=== PATIENT | male | born 1985 | race Caucasian/White ===

== ENCOUNTER 2020-10-07 09:10 | Emergency (ER) | payer MEDICAID, SELFPAY ==
--- NOTE | 2020-10-07 09:23 | ED.NAVMDI ---
HPI - Nausea/Vomiting/Diarrhea General Chief complaint: Nausea/Vomiting/Diarrhea Stated complaint: n/v Time Seen by Provider: 10/07/20 09:18 Source: patient and EMS Mode of arrival: EMS Limitations: no limitations History of Present Illness HPI Narrative: 35 y/o male with history of DM1 on insulin pump, hx gastroparesis presents to the ED with acute onset of nausea and vomiting that started at 11pm last night. He denies abdominal pain, fever, chills, hematemesis, urinary symptoms, SOB or chest pain. He reports some mild loose stools. No sick contacts, no new foods or concern for food bourne illness. He states he used to have gastroparesis flares very frequently but has not had once in almost a year. 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 MD elicited complaint: nausea and vomiting Onset (ago): hour(s) (10) Description of vomiting: food contents, watery and bilious Description of diarrhea: semi-solid Associated nausea: Yes Associated abdominal pain: No Location of pain: none Exacerbating factors: eating Relieving factors: vomiting Associated symptoms: loss of appetite, nausea/vomiting and weakness Treatment prior to arrival: other (IV zofran ) Related Data Previous Rx's Medication Instructions Recorded metoclopramide HCl [Reglan] 10 mg PO Q6H PRN #15 tab 10/07/20 Allergies Allergy/AdvReac Type Severity Reaction Status Date / Time No Known Allergies Allergy Mild NKA Verified 10/07/20 09:24 Review of Systems Review of Systems: Constitutional: No Fever, No Chills Cardiovascular: No Chest Pain, No SOB Respiratory: No Cough, No Sputum, No Wheezing Gastrointestinal: + Nausea, + Vomiting, + Diarrhea, No abdominal Pain, No Hematochezia, No Melena Genitourinary: No Dysuria, No Urinary Frequency, No Hematuria Musculoskeletal: No joint pain, No Myalgias Skin: No Skin Lesions, No rash Neuro: + Weakness, No Numbness, No Dizziness, No Headache Psych: No Anxiety/Panic, No Depression Heme/Lymph: No Bruising, No Lymphadenopathy Endocrine: No Polyuria, No Polydipsia Gastrointestinal: Gastrointestinal: Reports nausea PMFSH Past Medical History Attestation statement: The following information was validated with the patient. Medical History Type 1 diabetes Social History Social History Alcohol intake: current Alcohol intake frequency: holidays/special occasions only Smoking Status: Current every day smoker Use of substances other than those prescribed or required for medical reasons: Yes Substance Use Type: Marijuana Advance Directives: No Advance Directives Information Provided: No Physical Exam Vital Signs: Vital Signs: Last Vital Signs Temp 98.8 F 10/07/20 12:37 Pulse 77 10/07/20 12:37 Resp 16 10/07/20 09:25 BP 144/78 H 10/07/20 12:37 Pulse Ox 98 10/07/20 12:37 Body Mass Index 28.1 Appearance: Alert. Oriented X3. No acute distress. Eyes: Pupils equal, round and reactive to light. ENT: Pharynx normal. Neck: Normal inspection. Neck supple. CVS: Normal heart rate and rhythm. Pulses normal. Respiratory: No respiratory distress. Breath sounds normal. Abdomen: Soft and nontender. +BS x4 Skin: Skin warm and dry. Normal skin color. Normal skin turgor. No rashes. Extremities: No lower extremity edema. Neuro: Oriented X 3. No motor deficit. No sensory deficit. Course Course Course Narrative: 35 y/o with hx DM1, hx gastroparesis presenting with acute onset of N/V, no abdominal pain. Suspect gastroparesis vs gastroenteritis. Given lack of pain or tenderness on exam will hold off on imaging for now. Will hydrate give dose of Reglan now for persistent nausea, check labs for electrolyte abnormalities. Reevaluation(s) Reevaluation #1: WBC 16.6K, has been elevated on all visits to the ER. Likely reactive. No other significant abnormalities. Patient given reglan, benadryl and ativan with good effect. He is tolerating PO and like to be discharged home. Stable for d/c. MDM - Nausea/Vomiting/Diarrhea Lab Data Result diagrams: 10/07/20 09:51 10/07/20 09:51 Labs: Lab Results 10/07/20 10/07/20 10/07/20 Range/Units 09:51 09:51 09:51 WBC 16.6 H (4.8-10.8) X10*3/uL RBC 4.61 (4.60-5.80) X10*6/uL Hgb 15.4 (14.0-18.0) g/dl Hct 44.5 (42-52) % MCV 96.5 (80-98) fL MCH 33.4 H (27.0-33.0) pg MCHC 34.6 (31.0-36.0) g/dl RDW 12.6 (11.0-16.0) % Plt Count 378 (160-400) X10*3/uL MPV 9.7 (9.4-12.4) fL Immature Gran % (Auto) 0.3 (0.0-0.4) % Neut % (Auto) 91.1 H (45-73) % Lymph % (Auto) 3.2 L (20-40) % [place] % (Auto) 5.1 (2-11) % Eos % (Auto) 0.2 (0-4) % Baso % (Auto) 0.1 (0-2) % Lymph # (Auto) 0.5 L (1.2-4.9) X10*3/uL [place] # (Auto) 0.9 (0.1-1.2) X10*3/uL Eos # (Auto) 0.0 (0.0-0.4) X10*3/uL Baso # (Auto) 0.0 (0.0-0.2) X10*3/uL Abs Immat Gran (auto) 0.05 H (0.00-0.03) X10*3/uL Absolute Neuts (auto) 15.1 H (2.0-8.3) X10*3/uL Absolute Nucleated RBC 0.000 (0.0-0.012) X10*3/uL Nucleated RBC % (auto) 0.0 (0.0-0.2) /100WBC Smear Tech's Comments VERIFIED Sodium 140 (135-145) mmol/L Potassium 5.1 (3.3-5.1) mmol/l Chloride 100 (96-108) mmol/L Carbon Dioxide 25 (22-29) mmol/L Anion Gap 20 (12-20) BUN 11 (9-16) mg/dL Creatinine 1.21 (0.5-1.4) mg/dL Estim Creat Clear Calc 87.9 Estimated GFR > 60 Random Glucose 179 H (60-115) mg/dL Calcium 9.9 (8.4-10.2) mg/dL Magnesium 1.6 (1.6-2.6) mg/dL Total Bilirubin 0.8 (0.0-1.0) mg/dL Direct Bilirubin 0.4 (0.0-0.5) mg/dL AST 21 (5-37) U/L ALT 11 (0-40) U/L Alkaline Phosphatase 69 (39-117) U/L Total Protein 8.0 (6.5-8.0) g/dL Albumin 4.9 (3.5-5.0) g/dL Lipase 4 L (8-78) U/L Ethyl Alcohol < 10 mg/dL Discharge Plan Discharge Clinical Impression: Gastroenteritis Patient Disposition: Home, Self-Care Instructions: Diabetic Gastroparesis (DC), Gastroenteritis (ED) Additional Instructions: Your lab work today showed an elevation in your white blood cells which you have had several times in the past. This can be due to stress reaction from vomiting or an infection. You likely either have a gastroenteritis or GI bug and/or a flare of gastroparesis Recommend tight glucose control Take the prescribed medication as needed for nausea and vomiting. Follow up with your doctor this week. If you develop persistent vomiting or abdominal pain come back to the ER for further evaluation. Prescriptions: New metoclopramide HCl [Reglan] 10 mg tablet 10 mg PO Q6H PRN (Reason: nausea and vomiting) Qty: 15 RF: 0 Stand Alone Forms: Work/School Release
[2020-10-07 09:25] VITALS: BP 137/77; PULSE 108; PULSE 84; RESP 16; TEMP 37.1; O2SAT 99; BMI 28.1
[2020-10-07 09:57] LABS: Basophils Percent Auto 0.1 % (0-2); Eosinophils Percent Auto 0.2 % (0-4); Hematocrit 44.5 % (42-52); Hemoglobin 15.4 g/dl (14.0-18.0); Imm Gran Abs Auto 0.05 X10*3/uL (0.00-0.03); Imm Gran Pct Auto 0.3 % (0.0-0.4); Lymphocytes Absolute Auto 0.5 X10*3/uL (1.2-4.9); Lymphocytes Percent Auto 3.2 % (20-40); MANUAL DIFF FLAG SCAN; Mean Corpuscular HGB Conc 34.6 g/dl (31.0-36.0); Mean Corpuscular Hemoglobin 33.4 pg (27.0-33.0); Mean Corpuscular Volume 96.5 fL (80-98); Mean Platelet Volume 9.7 fL (9.4-12.4); Monocytes Absolute Auto 0.9 X10*3/uL (0.1-1.2); Monocytes Percent Auto 5.1 % (2-11); Neutrophils Absolute Auto 15.1 X10*3/uL (2.0-8.3); Neutrophils Percent Auto 91.1 % (45-73); Platelet Count 378 X10*3/uL (160-400); Red Blood Count 4.61 X10*6/uL (4.60-5.80); Red Cell Distribution Width 12.6 % (11.0-16.0); SCAN SMEAR FLAG 1; White Blood Count 16.6 X10*3/uL (4.8-10.8)
[2020-10-07] MEDS: Metoclopramide HCl 10 MG/2 ML VIAL IVPUSH (10:00)
[2020-10-07] MEDS: 0.9 % Sodium Chloride 1,000 ML 999 ML IVCONT (10:00)
[2020-10-07 10:22] LABS: Ethanol < 10 mg/dL
[2020-10-07 10:27] LABS: Alanine Aminotransferase 11 U/L (0-40); Albumin Level 4.9 g/dL (3.5-5.0); Alkaline Phosphatase 69 U/L (39-117); Anion Gap 20 (12-20); Aspartate Amino Transferase 21 U/L (5-37); Bilirubin Direct 0.4 mg/dL (0.0-0.5); Bilirubin Total 0.8 mg/dL (0.0-1.0); Blood Urea Nitrogen 11 mg/dL (9-16); Calcium 9.9 mg/dL (8.4-10.2); Carbon Dioxide 25 mmol/L (22-29); Chloride 100 mmol/L (96-108); Creatinine Clr Calc Pharmacy 87.9; Estimated Glomerular Filt Rate > 60; Glucose Random 179 mg/dL (60-115); Lipase 4 U/L (8-78); Magnesium 1.6 mg/dL (1.6-2.6); Potassium 5.1 mmol/l (3.3-5.1); Sodium 140 mmol/L (135-145)
--- NOTE | 2020-10-07 10:44 | PC.NURSE ---
blood labs obtained and sent, medicated per emar for active vomitting.
[2020-10-07 10:57] LABS: SLIDE REVIEW VERIFIED
[2020-10-07] MEDS: LORazepam 2 MG/ML VIAL 1 MG IVPUSH (11:10)
[2020-10-07] MEDS: diphenhydrAMINE HCL 50 MG/ML VIAL 25 MG IVPUSH (11:10)
--- NOTE | 2020-10-07 11:12 | PC.NURSE ---
pt continues to feel nauseous, medicated further per emar.
--- NOTE | 2020-10-07 12:19 | PC.NURSE ---
resting in stretcher, no nausea/vomitting att.
[2020-10-07 12:37] VITALS: BP 144/78; PULSE 77; TEMP 37.1; O2SAT 98
== END 2020-10-07 14:32 | disposition home or self-care (01) ==
PROVIDERS: Physician Assistant; Emergency Provider Emergency Medicine
DX: K52.29 Other allergic and dietetic gastroenteritis and colitis (principal); E10.9 Type 1 diabetes mellitus without complications; Z79.4 Long term (current) use of insulin; Z96.41 Presence of insulin pump (external) (internal); F17.200 Nicotine dependence, unspecified, uncomplicated
CPT/HCPCS: 36415; 80048; 80076; 80320; 83690; 83735; 85025; 96361; 96374; 96375; 99284; J1200; J2060; J2765

== ENCOUNTER 2020-11-05 23:52 | Emergency (ER) | payer MEDICAID, SELFPAY ==
[2020-11-06 00:39] VITALS: BP 157/102; PULSE 107; RESP 18; TEMP 36.5; O2SAT 98; BMI 25.8
--- NOTE | 2020-11-06 00:42 | ED_ITS ---
HPI - Psych General Chief Complaint: Psychiatric Symptoms <JAJA Maurer Last Filed: 11/06/20 01:28> Stated Complaint: section 12 <JAJA Maurer Last Filed: 11/06/20 01:28> Time Seen by Provider: 11/06/20 00:40 <JAJA Maurer Last Filed: 11/06/20 01:28> Source: patient and EMS <JAJA Maurer Last Filed: 11/06/20 01:28> Mode of arrival: EMS <JAJA Maurer Last Filed: 11/06/20 01:28> Limitations: no limitations <JAJA Maurer Last Filed: 11/06/20 01:28> History of Present Illness HPI Narrative: 35 y/o male with history of DM 1 on insulin pump, hx DKA in the past, gastroparesis, hx polysubstance abuse, hx bipolar disorder, anxiety/depression, hx inpatient psychiatric admission back in 2012 after Ativan OD in front of his girlfriend who presents to the ED via EMS after he was found lost in the [facility] this evening. He reportedly called 911. He states he went out into the [facility] to enjoy nature. When asked if he got lost he says no and does not respond when asked why he called 911. He refuses to answer all questions and states, I'm sleeping, leave me alone. <JAJA Maurer - Last Filed: 11/06/20 01:28> MD complaint: other (wandering in the [facility] ) <JAJA Maurer Last Filed: 01:28> Onset (ago): hour(s) <JAJA Maurer Last Filed: 11/06/20 01:28> Duration: resolved prior to arrival <JAJA Maurer Last Filed: 11/06/20 01:28> History of same: No <JAJA Maurer Last Filed: 11/06/20 01:28> Relieving factors: none <JAJA Maurer Last Filed: 11/06/20 01:28> Exacerbating factors: none <JAJA Maurer Last Filed: 11/06/20 01:28> Associated psychiatric symptoms: none <JAJA Maurer - Last Filed: 11/06/20 01:28> Treatments prior to arrival: none <JAJA Maurer - Last Filed: 11/06/20 01:28> Related Data Home Medications: Home Medications Medication Instructions Recorded Confirmed insulin lispro [Humalog KwikPen 50 unit SUBCUT DAILY 11/06/20 11/06/20 Insulin] Previous Rx's Medication Instructions Recorded metoclopramide HCl [Reglan] 10 mg PO Q6H PRN #15 tab 10/07/20 <JAJA Maurer - Last Filed: 11/06/20 01:28> Allergies/Adverse Reactions: Allergies Allergy/AdvReac Type Severity Reaction Status Date / Time No Known Allergies Allergy Mild NKA Verified 10/07/20 09:24 <JAJA Maurer - Last Filed: 11/06/20 01:28> Review of Systems Review of Systems: refusing to answer <JAJA Maurer - Last Filed: 11/06/20 01:28> Yes Unobtainable due to mental condition and Unobtainable due to mental status <JAJA Maurer - Last Filed: 11/06/20 01:28> [facility] Past Medical History Attestation statement: The following information was validated with the patient. <JAAJ Maurer - Last Filed: 11/06/20 01:28> Medical History: Medical History Type 1 diabetes <JAJA Maurer - Last Filed: 11/06/20 01:28> Social History Social History: Social History Alcohol intake: current Alcohol intake frequency: a few times a week Alcohol type: beer Smoking Status: Current every day smoker Smoked in Last 30 Days: Yes Use of substances other than those prescribed or required for medical reasons: Yes Substance Use Type: Marijuana Substance Use Frequency: Daily Last Used Substance: Unknown Any prior treatment program specific to substance use: No Advance Directives: No <JAJA Maurer Last Filed: 11/06/20 01:28> Physical Exam Vital Signs: Vital Signs: Last Vital Signs Temp 98.3 F 11/06/20 06:00 Pulse 84 11/06/20 06:00 Resp 18 11/06/20 06:00 BP 145/91 H 11/06/20 06:00 Pulse Ox 99 11/06/20 06:00 Body Mass Index 25.8 Appearance: Sleeping, young man resting in bed Eyes: normal external inspection ENT: normal inspection Neck: Normal inspection. Respiratory: No respiratory distress. Skin: Skin warm and dry. Normal skin color. Extremities: speaking in full sentences initially but refusing to participate. <JAJA Maurer - Last Filed: 11/06/20 01:28> Vital Signs: Last Vital Signs Temp 98.3 F 11/06/20 06:00 Pulse 84 11/06/20 06:00 Resp 18 11/06/20 06:00 BP 145/91 H 11/06/20 06:00 Pulse Ox 99 11/06/20 06:00 Body Mass Index 25.8 <Stefanie Mancini MD - Last Filed: 11/06/20 06:52> Course Course Course Narrative: 35 y/o male with hx DM1 on insulin pump, hx bipolar, polysubstance abuse and prior suicide attempt in 2012 presenting after getting lost wandering in the [facility]. Suspect substance abuse related. Refusing to participate in examination or interview. His VSS on arrival and he is in no distress. Labs and Utox pending. Will need to reassess once more cooperative. Will get BHN consult. <JAJA Maurer - Last Filed: 11/06/20 01:28> Reevaluation(s) Reevaluation #1: Re-evaluated patient and he was found to be diaphoretic and nursing reports that his glucose level was over 300. Patient was given his insulin pump and immediately connected it in administered the necessary coverage for the glucose. Due to the diaphoresis repeat lab work will be drawn. At the time of re-evaluation patient states that he is ?pissed off and frustrated? due to the inability to get the glucose monitoring device that goes along with the insulin pump and he feels that he has been getting the run around. He denies suicidal ideation or homicidal ideation and states that yes he has suffered from depression but he is more pissed off than anything else . We will get case management involvement as well to assist patient and navigating his appointment and potentially prescription renewal. Signed out to Dr Cardenas <Stefanie Mancini MD - Last Filed: 11/06/20 06:52> Time: 06:35 <Stefanie Mancini MD - Last Filed: 11/06/20 06:52> MDM - Psych Lab Data Result diagrams: : 11/06/20 01:48 11/06/20 01:48 <JAJA Maurer - Last Filed: 11/06/20 01:28> Labs: Lab Results 11/06/20 11/06/20 11/06/20 Range/Units 00:38 01:01 01:01 WBC (4.8-10.8) X10*3/uL RBC (4.60-5.80) X10*6/uL Hgb (14.0-18.0) g/dl Hct (42-52) % MCV (80-98) fL MCH (27.0-33.0) pg MCHC (31.0-36.0) g/dl RDW (11.0-16.0) % Plt Count (160-400) X10*3/uL MPV (9.4-12.4) fL Immature Gran % (Auto) (0.0-0.4) % Neut % (Auto) (45-73) % Lymph % (Auto) (20-40) % [place] % (Auto) (2-11) % Eos % (Auto) (0-4) % Baso % (Auto) (0-2) % Lymph # (Auto) (1.2-4.9) X10*3/uL [place] # (Auto) (0.1-1.2) X10*3/uL Eos # (Auto) (0.0-0.4) X10*3/uL Baso # (Auto) (0.0-0.2) X10*3/uL Abs Immat Gran (auto) (0.00-0.03) X10*3/uL Absolute Neuts (auto) (2.0-8.3) X10*3/uL Absolute Nucleated RBC (0.0-0.012) X10*3/uL Nucleated RBC % (auto) (0.0-0.2) /100WBC Sodium (135-145) mmol/L Potassium (3.3-5.1) mmol/L Chloride (96-108) mmol/L Carbon Dioxide (22-29) mmol/L Anion Gap (12-20) BUN (9-16) mg/dL Creatinine (0.5-1.4) mg/dL Estim Creat Clear Calc Estimated GFR POC Glucose 181 H (60-115) mg/dL Random Glucose (60-115) mg/dL Calcium (8.4-10.2) mg/dL Magnesium (1.6-2.6) mg/dL Total Bilirubin (0.0-1.0) mg/dL Direct Bilirubin (0.0-0.5) mg/dL AST (5-37) U/L ALT (0-40) U/L Alkaline Phosphatase (39-117) U/L Total Protein (6.5-8.0) g/dL Albumin (3.5-5.0) g/dL Urine Color YELLOW Urine Appearance CLEAR Urine pH 6.5 (5.0-8.0) Ur Specific [place] <= 1.005 (1.005-1.025) Urine Protein NEG (NEG-TRACE) MG/DL Urine Glucose (UA) 250 H (NEG) MG/DL Urine Ketones NEG (NEG) MG/DL Urine Blood NEG (NEG) Urine Nitrite NEG (NEG) Ur Leukocyte Esterase NEG (NEG) Urine Opiates Screen Not Detected (Not Detect) Ur Barbiturates Screen Not Detected (Not Detect) Ur Phencyclidine Scrn Not Detected (Not Detect) Ur Amphetamines Screen Not Detected (Not Detect) U Benzodiazepines Scrn Not Detected (Not Detect) Urine Cocaine Screen Not Detected (Not Detect) U Marijuana (THC) Screen POSITIVE H (Not Detect) Ethyl Alcohol mg/dL 11/06/20 11/06/20 11/06/20 Range/Units 01:48 01:48 01:48 WBC 6.0 (4.8-10.8) X10*3/uL RBC 4.46 L (4.60-5.80) X10*6/uL Hgb 14.8 (14.0-18.0) g/dl Hct 42.4 (42-52) % MCV 95.1 (80-98) fL MCH 33.2 H (27.0-33.0) pg MCHC 34.9 (31.0-36.0) g/dl RDW 11.9 (11.0-16.0) % Plt Count 325 (160-400) X10*3/uL MPV 10.3 (9.4-12.4) fL Immature Gran % (Auto) 0.2 (0.0-0.4) % Neut % (Auto) 67.0 (45-73) % Lymph % (Auto) 22.4 (20-40) % [place] % (Auto) 8.9 (2-11) % Eos % (Auto) 0.7 (0-4) % Baso % (Auto) 0.8 (0-2) % Lymph # (Auto) 1.3 (1.2-4.9) X10*3/uL [place] # (Auto) 0.5 (0.1-1.2) X10*3/uL Eos # (Auto) 0.0 (0.0-0.4) X10*3/uL Baso # (Auto) 0.1 (0.0-0.2) X10*3/uL Abs Immat Gran (auto) 0.01 (0.00-0.03) X10*3/uL Absolute Neuts (auto) 4.0 (2.0-8.3) X10*3/uL Absolute Nucleated RBC 0.000 (0.0-0.012) X10*3/uL Nucleated RBC % (auto) 0.0 (0.0-0.2) /100WBC Sodium 140 (135-145) mmol/L Potassium 4.8 (3.3-5.1) mmol/L Chloride 106 (96-108) mmol/L Carbon Dioxide 24 (22-29) mmol/L Anion Gap 15 (12-20) BUN 7 L (9-16) mg/dL Creatinine 0.84 (0.5-1.4) mg/dL Estim Creat Clear Calc 115.8 Estimated GFR > 60 POC Glucose (60-115) mg/dL Random Glucose 144 H (60-115) mg/dL Calcium 8.9 D (8.4-10.2) mg/dL Magnesium 2.0 (1.6-2.6) mg/dL Total Bilirubin 0.4 (0.0-1.0) mg/dL Direct Bilirubin 0.2 (0.0-0.5) mg/dL AST 18 (5-37) U/L ALT 9 (0-40) U/L Alkaline Phosphatase 58 (39-117) U/L Total Protein 7.2 (6.5-8.0) g/dL Albumin 4.6 (3.5-5.0) g/dL Urine Color Urine Appearance Urine pH (5.0-8.0) Ur Specific [place] (1.005-1.025) Urine Protein (NEG-TRACE) MG/DL Urine Glucose (UA) (NEG) MG/DL Urine Ketones (NEG) MG/DL Urine Blood (NEG) Urine Nitrite (NEG) Ur Leukocyte Esterase (NEG) Urine Opiates Screen (Not Detect) Ur Barbiturates Screen (Not Detect) Ur Phencyclidine Scrn (Not Detect) Ur Amphetamines Screen (Not Detect) U Benzodiazepines Scrn (Not Detect) Urine Cocaine Screen (Not Detect) U Marijuana (THC) Screen (Not Detect) Ethyl Alcohol 135 mg/dL 11/06/20 Range/Units 06:17 WBC (4.8-10.8) X10*3/uL RBC (4.60-5.80) X10*6/uL Hgb (14.0-18.0) g/dl Hct (42-52) % MCV (80-98) fL MCH (27.0-33.0) pg MCHC (31.0-36.0) g/dl RDW (11.0-16.0) % Plt Count (160-400) X10*3/uL MPV (9.4-12.4) fL Immature Gran % (Auto) (0.0-0.4) % Neut % (Auto) (45-73) % Lymph % (Auto) (20-40) % [place] % (Auto) (2-11) % Eos % (Auto) (0-4) % Baso % (Auto) (0-2) % Lymph # (Auto) (1.2-4.9) X10*3/uL [place] # (Auto) (0.1-1.2) X10*3/uL Eos # (Auto) (0.0-0.4) X10*3/uL Baso # (Auto) (0.0-0.2) X10*3/uL Abs Immat Gran (auto) (0.00-0.03) X10*3/uL Absolute Neuts (auto) (2.0-8.3) X10*3/uL Absolute Nucleated RBC (0.0-0.012) X10*3/uL Nucleated RBC % (auto) (0.0-0.2) /100WBC Sodium (135-145) mmol/L Potassium (3.3-5.1) mmol/L Chloride (96-108) mmol/L Carbon Dioxide (22-29) mmol/L Anion Gap (12-20) BUN (9-16) mg/dL Creatinine (0.5-1.4) mg/dL Estim Creat Clear Calc Estimated GFR POC Glucose 365 H* (60-115) mg/dL Random Glucose (60-115) mg/dL Calcium (8.4-10.2) mg/dL Magnesium (1.6-2.6) mg/dL Total Bilirubin (0.0-1.0) mg/dL Direct Bilirubin (0.0-0.5) mg/dL AST (5-37) U/L ALT (0-40) U/L Alkaline Phosphatase (39-117) U/L Total Protein (6.5-8.0) g/dL Albumin (3.5-5.0) g/dL Urine Color Urine Appearance Urine pH (5.0-8.0) Ur Specific [place] (1.005-1.025) Urine Protein (NEG-TRACE) MG/DL Urine Glucose (UA) (NEG) MG/DL Urine Ketones (NEG) MG/DL Urine Blood (NEG) Urine Nitrite (NEG) Ur Leukocyte Esterase (NEG) Urine Opiates Screen (Not Detect) Ur Barbiturates Screen (Not Detect) Ur Phencyclidine Scrn (Not Detect) Ur Amphetamines Screen (Not Detect) U Benzodiazepines Scrn (Not Detect) Urine Cocaine Screen (Not Detect) U Marijuana (THC) Screen (Not Detect) Ethyl Alcohol mg/dL <JAJA Maurer - Last Filed: 11/06/20 01:28> Lab Results 11/06/20 11/06/20 11/06/20 Range/Units 00:38 01:01 01:01 WBC (4.8-10.8) X10*3/uL RBC (4.60-5.80) X10*6/uL Hgb (14.0-18.0) g/dl Hct (42-52) % MCV (80-98) fL MCH (27.0-33.0) pg MCHC (31.0-36.0) g/dl RDW (11.0-16.0) % Plt Count (160-400) X10*3/uL MPV (9.4-12.4) fL Immature Gran % (Auto) (0.0-0.4) % Neut % (Auto) (45-73) % Lymph % (Auto) (20-40) % [place] % (Auto) (2-11) % Eos % (Auto) (0-4) % Baso % (Auto) (0-2) % Lymph # (Auto) (1.2-4.9) X10*3/uL [place] # (Auto) (0.1-1.2) X10*3/uL Eos # (Auto) (0.0-0.4) X10*3/uL Baso # (Auto) (0.0-0.2) X10*3/uL Abs Immat Gran (auto) (0.00-0.03) X10*3/uL Absolute Neuts (auto) (2.0-8.3) X10*3/uL Absolute Nucleated RBC (0.0-0.012) X10*3/uL Nucleated RBC % (auto) (0.0-0.2) /100WBC Sodium (135-145) mmol/L Potassium (3.3-5.1) mmol/L Chloride (96-108) mmol/L Carbon Dioxide (22-29) mmol/L Anion Gap (12-20) BUN (9-16) mg/dL Creatinine (0.5-1.4) mg/dL Estim Creat Clear Calc Estimated GFR POC Glucose 181 H (60-115) mg/dL Random Glucose (60-115) mg/dL Calcium (8.4-10.2) mg/dL Magnesium (1.6-2.6) mg/dL Total Bilirubin (0.0-1.0) mg/dL Direct Bilirubin (0.0-0.5) mg/dL AST (5-37) U/L ALT (0-40) U/L Alkaline Phosphatase (39-117) U/L Total Protein (6.5-8.0) g/dL Albumin (3.5-5.0) g/dL Urine Color YELLOW Urine Appearance CLEAR Urine pH 6.5 (5.0-8.0) Ur Specific [place] <= 1.005 (1.005-1.025) Urine Protein NEG (NEG-TRACE) MG/DL Urine Glucose (UA) 250 H (NEG) MG/DL Urine Ketones NEG (NEG) MG/DL Urine Blood NEG (NEG) Urine Nitrite NEG (NEG) Ur Leukocyte Esterase NEG (NEG) Urine Opiates Screen Not Detected (Not Detect) Ur Barbiturates Screen Not Detected (Not Detect) Ur Phencyclidine Scrn Not Detected (Not Detect) Ur Amphetamines Screen Not Detected (Not Detect) U Benzodiazepines Scrn Not Detected (Not Detect) Urine Cocaine Screen Not Detected (Not Detect) U Marijuana (THC) Screen POSITIVE H (Not Detect) Ethyl Alcohol mg/dL 11/06/20 11/06/20 11/06/20 Range/Units 01:48 01:48 01:48 WBC 6.0 (4.8-10.8) X10*3/uL RBC 4.46 L (4.60-5.80) X10*6/uL Hgb 14.8 (14.0-18.0) g/dl Hct 42.4 (42-52) % MCV 95.1 (80-98) fL MCH 33.2 H (27.0-33.0) pg MCHC 34.9 (31.0-36.0) g/dl RDW 11.9 (11.0-16.0) % Plt Count 325 (160-400) X10*3/uL MPV 10.3 (9.4-12.4) fL Immature Gran % (Auto) 0.2 (0.0-0.4) % Neut % (Auto) 67.0 (45-73) % Lymph % (Auto) 22.4 (20-40) % [place] % (Auto) 8.9 (2-11) % Eos % (Auto) 0.7 (0-4) % Baso % (Auto) 0.8 (0-2) % Lymph # (Auto) 1.3 (1.2-4.9) X10*3/uL [place] # (Auto) 0.5 (0.1-1.2) X10*3/uL Eos # (Auto) 0.0 (0.0-0.4) X10*3/uL Baso # (Auto) 0.1 (0.0-0.2) X10*3/uL Abs Immat Gran (auto) 0.01 (0.00-0.03) X10*3/uL Absolute Neuts (auto) 4.0 (2.0-8.3) X10*3/uL Absolute Nucleated RBC 0.000 (0.0-0.012) X10*3/uL Nucleated RBC % (auto) 0.0 (0.0-0.2) /100WBC Sodium 140 (135-145) mmol/L Potassium 4.8 (3.3-5.1) mmol/L Chloride 106 (96-108) mmol/L Carbon Dioxide 24 (22-29) mmol/L Anion Gap 15 (12-20) BUN 7 L (9-16) mg/dL Creatinine 0.84 (0.5-1.4) mg/dL Estim Creat Clear Calc 115.8 Estimated GFR > 60 POC Glucose (60-115) mg/dL Random Glucose 144 H (60-115) mg/dL Calcium 8.9 D (8.4-10.2) mg/dL Magnesium 2.0 (1.6-2.6) mg/dL Total Bilirubin 0.4 (0.0-1.0) mg/dL Direct Bilirubin 0.2 (0.0-0.5) mg/dL AST 18 (5-37) U/L ALT 9 (0-40) U/L Alkaline Phosphatase 58 (39-117) U/L Total Protein 7.2 (6.5-8.0) g/dL Albumin 4.6 (3.5-5.0) g/dL Urine Color Urine Appearance Urine pH (5.0-8.0) Ur Specific [place] (1.005-1.025) Urine Protein (NEG-TRACE) MG/DL Urine Glucose (UA) (NEG) MG/DL Urine Ketones (NEG) MG/DL Urine Blood (NEG) Urine Nitrite (NEG) Ur Leukocyte Esterase (NEG) Urine Opiates Screen (Not Detect) Ur Barbiturates Screen (Not Detect) Ur Phencyclidine Scrn (Not Detect) Ur Amphetamines Screen (Not Detect) U Benzodiazepines Scrn (Not Detect) Urine Cocaine Screen (Not Detect) U Marijuana (THC) Screen (Not Detect) Ethyl Alcohol 135 mg/dL 11/06/20 Range/Units 06:17 WBC (4.8-10.8) X10*3/uL RBC (4.60-5.80) X10*6/uL Hgb (14.0-18.0) g/dl Hct (42-52) % MCV (80-98) fL MCH (27.0-33.0) pg MCHC (31.0-36.0) g/dl RDW (11.0-16.0) % Plt Count (160-400) X10*3/uL MPV (9.4-12.4) fL Immature Gran % (Auto) (0.0-0.4) % Neut % (Auto) (45-73) % Lymph % (Auto) (20-40) % [place] % (Auto) (2-11) % Eos % (Auto) (0-4) % Baso % (Auto) (0-2) % Lymph # (Auto) (1.2-4.9) X10*3/uL [place] # (Auto) (0.1-1.2) X10*3/uL Eos # (Auto) (0.0-0.4) X10*3/uL Baso # (Auto) (0.0-0.2) X10*3/uL Abs Immat Gran (auto) (0.00-0.03) X10*3/uL Absolute Neuts (auto) (2.0-8.3) X10*3/uL Absolute Nucleated RBC (0.0-0.012) X10*3/uL Nucleated RBC % (auto) (0.0-0.2) /100WBC Sodium (135-145) mmol/L Potassium (3.3-5.1) mmol/L Chloride (96-108) mmol/L Carbon Dioxide (22-29) mmol/L Anion Gap (12-20) BUN (9-16) mg/dL Creatinine (0.5-1.4) mg/dL Estim Creat Clear Calc Estimated GFR POC Glucose 365 H* (60-115) mg/dL Random Glucose (60-115) mg/dL Calcium (8.4-10.2) mg/dL Magnesium (1.6-2.6) mg/dL Total Bilirubin (0.0-1.0) mg/dL Direct Bilirubin (0.0-0.5) mg/dL AST (5-37) U/L ALT (0-40) U/L Alkaline Phosphatase (39-117) U/L Total Protein (6.5-8.0) g/dL Albumin (3.5-5.0) g/dL Urine Color Urine Appearance Urine pH (5.0-8.0) Ur Specific [place] (1.005-1.025) Urine Protein (NEG-TRACE) MG/DL Urine Glucose (UA) (NEG) MG/DL Urine Ketones (NEG) MG/DL Urine Blood (NEG) Urine Nitrite (NEG) Ur Leukocyte Esterase (NEG) Urine Opiates Screen (Not Detect) Ur Barbiturates Screen (Not Detect) Ur Phencyclidine Scrn (Not Detect) Ur Amphetamines Screen (Not Detect) U Benzodiazepines Scrn (Not Detect) Urine Cocaine Screen (Not Detect) U Marijuana (THC) Screen (Not Detect) Ethyl Alcohol mg/dL <Stefanie Mancini MD - Last Filed: 11/06/20 06:52> Discharge Plan Discharge Prescriptions: No Action metoclopramide HCl [Reglan] 10 mg tablet 10 mg PO Q6H PRN (Reason: nausea and vomiting) Qty: 15 RF: 0 insulin lispro [Humalog KwikPen Insulin] 100 unit/mL Insulin Pen 50 unit SUBCUT DAILY RF: 0 <JAJA Maurer - Last Filed: 11/06/20 01:28>
[2020-11-06 00:46] LABS: Glucose, Whole Blood 181 mg/dL (60-115)
[2020-11-06 01:14] LABS: Glucose Urine UA 250 MG/DL (NEG); Leukocyte Esterase Urine NEG (NEG); Nitrite Urine NEG (NEG); PH 6.5 (5.0-8.0); Specific Gravity - Urine <= 1.005 (1.005-1.025); Urine Blood NEG (NEG); Urine Ketones NEG (NEG); Urine Protein NEG (NEG-TRACE)
[2020-11-06 01:15] LABS: Appearance Urine CLEAR; Color Urine YELLOW; UACC Culture Trigger NO
[2020-11-06 01:30] LABS: Amphetamine Screen Urine Not Detected (Not Detect); Barbiturates, Urine Not Detected (Not Detect); Benzodiazepines Screen Urine Not Detected (Not Detect); Cannabinoid Screen Urine POSITIVE (Not Detect); Cocaine Screen Urine Not Detected (Not Detect); Opiate Screen Urine Not Detected (Not Detect); Phencyclidine Screen Urine Not Detected (Not Detect)
[2020-11-06 02:06] LABS: Basophils Absolute Auto 0.1 X10*3/uL (0.0-0.2); Basophils Percent Auto 0.8 % (0-2); Eosinophils Percent Auto 0.7 % (0-4); Hematocrit 42.4 % (42-52); Hemoglobin 14.8 g/dl (14.0-18.0); Imm Gran Abs Auto 0.01 X10*3/uL (0.00-0.03); Imm Gran Pct Auto 0.2 % (0.0-0.4); Lymphocytes Absolute Auto 1.3 X10*3/uL (1.2-4.9); Lymphocytes Percent Auto 22.4 % (20-40); MANUAL DIFF FLAG NO; Mean Corpuscular HGB Conc 34.9 g/dl (31.0-36.0); Mean Corpuscular Hemoglobin 33.2 pg (27.0-33.0); Mean Corpuscular Volume 95.1 fL (80-98); Mean Platelet Volume 10.3 fL (9.4-12.4); Monocytes Absolute Auto 0.5 X10*3/uL (0.1-1.2); Monocytes Percent Auto 8.9 % (2-11); Platelet Count 325 X10*3/uL (160-400); Red Blood Count 4.46 X10*6/uL (4.60-5.80); Red Cell Distribution Width 11.9 % (11.0-16.0)
[2020-11-06 02:25] LABS: Ethanol 135 mg/dL
[2020-11-06 02:30] LABS: Alanine Aminotransferase 9 U/L (0-40); Albumin Level 4.6 g/dL (3.5-5.0); Alkaline Phosphatase 58 U/L (39-117); Anion Gap 15 (12-20); Aspartate Amino Transferase 18 U/L (5-37); Bilirubin Direct 0.2 mg/dL (0.0-0.5); Bilirubin Total 0.4 mg/dL (0.0-1.0); Blood Urea Nitrogen 7 mg/dL (9-16); Carbon Dioxide 24 mmol/L (22-29); Chloride 106 mmol/L (96-108); Creatinine Clr Calc Pharmacy 115.8; Estimated Glomerular Filt Rate > 60; Glucose Random 144 mg/dL (60-115); Potassium 4.8 mmol/L (3.3-5.1); Sodium 140 mmol/L (135-145); Total Protein 7.2 g/dL (6.5-8.0)
[2020-11-06 02:34] LABS: Calcium 8.9 mg/dL (8.4-10.2)
--- NOTE | 2020-11-06 05:21 | PC.NURSE ---
DINAN faxed and called. PT will be seen during the next shift.
[2020-11-06 06:00] VITALS: BP 145/91; PULSE 84; RESP 18; TEMP 36.8; O2SAT 99
[2020-11-06 06:39] LABS: Glucose, Whole Blood 365 mg/dL (60-115)
--- NOTE | 2020-11-06 06:46 | PC.NURSE ---
When PT came to the unit with PD he was insisting that he needed his insulin pump. PT was upset at the time of arrival and did not clearly express that he had his insulin pump here with him, and the pump was already removed from his body prior to arrival. This nurse assured the PT that we would continue to monitor his insulin throughout the day and we would be able to provide him with insulin according to his sliding scale. When PT woke up this morning and had his POC checked it was found to have increased from 181 mg/dL at 00:38 to 365 mg/dL at 06:17 without receiving any food and drinks. PT was then able to express that he uses his pump in his locker throughout the day to administer insulin. PT was then provided with his insulin pump to help stabilize his blood sugar.
[2020-11-06 07:16] LABS: Acetone, serum QL Negative (Negative)
[2020-11-06 07:17] LABS: Alanine Aminotransferase 10 U/L (0-40); Albumin Level 4.6 g/dL (3.5-5.0); Alkaline Phosphatase 58 U/L (39-117); Anion Gap 16 (12-20); Aspartate Amino Transferase 18 U/L (5-37); Bilirubin Total 0.9 mg/dL (0.0-1.0); Blood Urea Nitrogen 9 mg/dL (9-16); Calcium 8.9 mg/dL (8.4-10.2); Carbon Dioxide 20 mmol/L (22-29); Chloride 100 mmol/L (96-108); Creatinine Clr Calc Pharmacy 98.2; Estimated Glomerular Filt Rate > 60; Glucose Random 414 mg/dL (60-115); Potassium 5.3 mmol/L (3.3-5.1); Sodium 131 mmol/L (135-145); Total Protein 7.4 g/dL (6.5-8.0)
--- NOTE | 2020-11-06 07:59 | PC.NURSE ---
PT IN COMMON AREA WATCHING TV. ATE BKFST. AWAITING BHN
[2020-11-06 08:27] LABS: Glucose, Whole Blood 190 mg/dL (60-115)
[2020-11-06 09:37] VITALS: BP 130/90; PULSE 68; TEMP 36.7; O2SAT 99
--- NOTE | 2020-11-06 10:21 | MHC.CM.PN ---
Addendum entered by Vangie Walters RN 11/06/20 10:29: DISCHARGE HOME W/RESUMPTION OF INSULIN PUMP, PT'S MOTHER TO TRANSPORT, CM WILL CALL PT WITH UPDATED ENDOCRINOLOGY APPT INFO, PT AWARE. NSG AWARE OF PTS DISPOSITION. Original Note: CM MET WITH PT WHO IS ALERT AND ORIENTED, PT DENIES CURRENT SUICIDAL IDEATION AND REPORTS HE FEELS SAFE AT HOME WITH MOM AND STEPFATHER, PT INTERESTED IN THERAPY AND NURSE HAS GIVEN PT INFO AND NUMBER FOR [facility] TO CALL FOR COUNSELING, PT DENIES HAVING PCP AND DECLINES ASSISTANCE FROM CM TO SET PT UP WITH ONE, PT WOULD LIKE ASSISTANCE WITH CALLING TO TRY AND SCHEDULE AN APPT WITH PT'S CHIEF INFORMATICS OFFICER SOONER THAN THE APPT WHICH IS NOW SCHEDULED IN DECEMBER, PT UNSURE OF DATE AND TIME. CM LEFT MESSAGE WITH PT'S CHIEF INFORMATICS OFFICER DR CORCORAN WITH [facility]. PT PHONE NUMBER: [phone] ENDOCINOLOGY: DR CORCORAN [phone]
== END 2020-11-06 10:40 | disposition home or self-care (01) ==
PROVIDERS: Physician Assistant; Emergency Provider Student in an Organized Health Care Education/Training Program
DX: F10.120 Alcohol abuse with intoxication, uncomplicated (principal); Y90.6 Blood alcohol level of 120-199 mg/100 ml; F41.9 Anxiety disorder, unspecified; E10.9 Type 1 diabetes mellitus without complications; F31.9 Bipolar disorder, unspecified; F19.10 Other psychoactive substance abuse, uncomplicated; F17.200 Nicotine dependence, unspecified, uncomplicated; Z79.4 Long term (current) use of insulin; Z96.41 Presence of insulin pump (external) (internal); Z91.5 Personal history of self-harm
CPT/HCPCS: 36415; 80048; 80053; 80076; 80307; 80320; 81003; 82009; 82248; 82947; 83735; 85025; 99285

== ENCOUNTER 2021-02-06 08:51 | Emergency (ER) | payer MEDICAID, SELFPAY ==
[2021-02-06 08:55] VITALS: BP 128/78; PULSE 61; RESP 22; TEMP 36.6; O2SAT 97; BMI 24.1
--- NOTE | 2021-02-06 08:55 | ED_ITS ---
HPI - Nausea/Vomiting/Diarrhea General Chief complaint: Nausea/Vomiting/Diarrhea Stated complaint: n/v Time Seen by Provider: 02/06/21 08:53 Source: patient and EMS Mode of arrival: EMS Limitations: no limitations History of Present Illness MD elicited complaint: nausea, vomiting and diarrhea Pertinent past history: cyclical vomiting Onset (ago): hour(s) (last night) Description of vomiting: food contents Associated nausea: Yes Associated abdominal pain: Yes Location of pain: diffuse Pain consistency: intermittent Severity: similar to previous episodes Quality: cramping Exacerbating factors: eating Relieving factors: none Associated symptoms: loss of appetite, malaise and nausea/vomiting Treatment prior to arrival: other (EMS started fluids and zofran) Related Data Home Medications Medication Instructions Recorded Confirmed insulin lispro [Humalog KwikPen 50 unit SUBCUT DAILY 11/06/20 11/06/20 Insulin] Previous Rx's Medication Instructions Recorded metoclopramide HCl [Reglan] 10 mg PO Q6H PRN #15 tab 10/07/20 ondansetron 4 mg PO Q8H PRN #20 tab 02/06/21 Allergies Allergy/AdvReac Type Severity Reaction Status Date / Time No Known Allergies Allergy Mild NKA Verified 10/07/20 09:24 Review of Systems Review of Systems: Constitutional : No Weight loss, No Fever, No Chills ENT/Mouth : No sore throat, No Rhinorrhea Eyes: No Swelling, No Redness Cardiovascular : No Chest Pain, No SOB, NoEdema Respiratory : No Cough, No Sputum, No Wheezing Gastrointestinal : Positive Nausea, Positive Vomiting, positive Diarrhea, positive abdominal Pain, No Hematochezia, No Melena Genitourinary : No Dysuria, No Urinary Frequency, No Hematuria, No Urgency Musculoskeletal : No joint pain, No Myalgias, No Joint Swelling Skin : No Skin Lesions, No rash Neuro : No Weakness, No Numbness, No Dizziness, No Headache Psych : No Anxiety/Panic, No Depression Heme/Lymph: No Bruising, No Lymphadenopathy Endocrine : No Polyuria, No Polydipsia All other systems reviewed and are negative. Gastrointestinal: Gastrointestinal: Reports nausea PMFSH Past Medical History Attestation statement: The following information was validated with the patient. Medical History Type 1 diabetes Social History Social History (Updated 02/06/21 @ 08:56 by Shana Ambrocio DO) Alcohol intake: current Alcohol intake frequency: a few times a week Alcohol type: beer Smoking Status: Never smoker Substance Use Type: Marijuana Advance Directives: No Advance Directives Information Provided: No Physical Exam Vital Signs: Vital Signs: Last Vital Signs Temp 98 F 02/06/21 08:55 Pulse 61 02/06/21 08:55 Resp 22 H 02/06/21 08:55 BP 128/78 02/06/21 08:55 Pulse Ox 97 02/06/21 08:55 Body Mass Index 24.1 Appearance: Alert. Oriented X3. Active dry heaving mild acute distress. Eyes: Pupils equal, round and reactive to light. ENT: Pharynx dry MM mild Neck: Normal inspection. Neck supple. CVS: Normal heart rate and rhythm. Pulses normal. Respiratory: No respiratory distress. Breath sounds normal. Abdomen: Soft and mild diffuse ttp Skin: Skin warm and dry. pale skin color. Normal skin turgor. Extremities: No lower extremity edema. No calf ttp Neuro: Oriented X 3. No motor deficit. No sensory deficit. Course Course Course Narrative: elevated WBC count due to hyperemesis and not infection or severe sepsis hydrated x 2L NS currently asleep post IM haldol able to tolerate PO feels much better stable for DC at this time, not in DKA repeat IVF and IV anti emetics MDM - Nausea/Vomiting/Diarrhea MDM Narrative Medical decision making narrative: 35 yo male with IDDM here with n/v hx of episodes of cyclical vomiting in the past at this time will obtain basic labs, hydrate IV reglan/benadryl, possible haldol depending on reaction to phenergan, dispo per results and improvement. Lab Data Result diagrams: 02/06/21 09:17 02/06/21 09:17 Labs: Lab Results 02/06/21 02/06/21 02/06/21 Range/Units 09:17 09:17 09:17 WBC 23.5 H (4.8-10.8) X10*3/uL RBC 4.82 (4.60-5.80) X10*6/uL Hgb 16.2 (14.0-18.0) g/dl Hct 46.1 (42-52) % MCV 95.6 (80-98) fL MCH 33.6 H (27.0-33.0) pg MCHC 35.1 (31.0-36.0) g/dl RDW 12.7 (11.0-16.0) % Plt Count 365 (160-400) X10*3/uL MPV 10.4 (9.4-12.4) fL Immature Gran % (Auto) 0.6 H (0.0-0.4) % Neut % (Auto) 87.9 H (45-73) % Lymph % (Auto) 5.1 L (20-40) % [place] % (Auto) 6.1 (2-11) % Eos % (Auto) 0.0 (0-4) % Baso % (Auto) 0.3 (0-2) % Lymph # (Auto) 1.2 (1.2-4.9) X10*3/uL [place] # (Auto) 1.4 H (0.1-1.2) X10*3/uL Eos # (Auto) 0.0 (0.0-0.4) X10*3/uL Baso # (Auto) 0.1 (0.0-0.2) X10*3/uL Abs Immat Gran (auto) 0.15 H (0.00-0.03) X10*3/uL Absolute Neuts (auto) 20.6 H (2.0-8.3) X10*3/uL Absolute Nucleated RBC 0.000 (0.0-0.012) X10*3/uL Nucleated RBC % (auto) 0.0 (0.0-0.2) /100WBC Smear Tech's Comments VERIFIED Hold Blue Top SEE NOTE VBG pH (7.32-7.43) VBG pCO2 mmHg VBG pO2 mmHg VBG HCO3 (22-26) mmol/L VBG O2 Saturation % VBG Base Excess mmol/L Sodium 136 (135-145) mmol/L Potassium 5.4 H (3.3-5.1) mmol/L Chloride 102 (96-108) mmol/L Carbon Dioxide 20 L (22-29) mmol/L Anion Gap 19 (12-20) BUN 13 (9-16) mg/dL Creatinine 1.18 (0.5-1.4) mg/dL Estim Creat Clear Calc 91.0 Estimated GFR > 60 Random Glucose 305 H (60-115) mg/dL Calcium 10.3 H D (8.4-10.2) mg/dL Magnesium 1.6 (1.6-2.6) mg/dL Total Bilirubin 0.9 (0.0-1.0) mg/dL Direct Bilirubin 0.5 (0.0-0.5) mg/dL AST 22 (5-37) U/L ALT 11 (0-40) U/L Alkaline Phosphatase 67 (39-117) U/L Total Protein 7.9 (6.5-8.0) g/dL Albumin 4.8 (3.5-5.0) g/dL Lipase 9 (8-78) U/L Urine Color Urine Appearance Urine pH (5.0-8.0) Ur Specific [place] (1.005-1.025) Urine Protein (NEG-TRACE) MG/DL Urine Glucose (UA) (NEG) MG/DL Urine Ketones (NEG) MG/DL Urine Blood (NEG) Urine Nitrite (NEG) Ur Leukocyte Esterase (NEG) Urine Opiates Screen (Not Detect) Ur Barbiturates Screen (Not Detect) Ur Phencyclidine Scrn (Not Detect) Ur Amphetamines Screen (Not Detect) U Benzodiazepines Scrn (Not Detect) Urine Cocaine Screen (Not Detect) U Marijuana (THC) Screen (Not Detect) Ethyl Alcohol mg/dL Acetone, Qual Negative (Negative) COVID-19 (ABI) (Negative) COVID-19 Clin Com 02/06/21 02/06/21 02/06/21 Range/Units 09:17 09:18 09:23 WBC (4.8-10.8) X10*3/uL RBC (4.60-5.80) X10*6/uL Hgb (14.0-18.0) g/dl Hct (42-52) % MCV (80-98) fL MCH (27.0-33.0) pg MCHC (31.0-36.0) g/dl RDW (11.0-16.0) % Plt Count (160-400) X10*3/uL MPV (9.4-12.4) fL Immature Gran % (Auto) (0.0-0.4) % Neut % (Auto) (45-73) % Lymph % (Auto) (20-40) % [place] % (Auto) (2-11) % Eos % (Auto) (0-4) % Baso % (Auto) (0-2) % Lymph # (Auto) (1.2-4.9) X10*3/uL [place] # (Auto) (0.1-1.2) X10*3/uL Eos # (Auto) (0.0-0.4) X10*3/uL Baso # (Auto) (0.0-0.2) X10*3/uL Abs Immat Gran (auto) (0.00-0.03) X10*3/uL Absolute Neuts (auto) (2.0-8.3) X10*3/uL Absolute Nucleated RBC (0.0-0.012) X10*3/uL Nucleated RBC % (auto) (0.0-0.2) /100WBC Smear Tech's Comments Hold Blue Top VBG pH 7.53 H (7.32-7.43) VBG pCO2 23 mmHg VBG pO2 138 mmHg VBG HCO3 19 L (22-26) mmol/L VBG O2 Saturation 99.0 % VBG Base Excess -0.6 mmol/L Sodium (135-145) mmol/L Potassium (3.3-5.1) mmol/L Chloride (96-108) mmol/L Carbon Dioxide (22-29) mmol/L Anion Gap (12-20) BUN (9-16) mg/dL Creatinine (0.5-1.4) mg/dL Estim Creat Clear Calc Estimated GFR Random Glucose (60-115) mg/dL Calcium (8.4-10.2) mg/dL Magnesium (1.6-2.6) mg/dL Total Bilirubin (0.0-1.0) mg/dL Direct Bilirubin (0.0-0.5) mg/dL AST (5-37) U/L ALT (0-40) U/L Alkaline Phosphatase (39-117) U/L Total Protein (6.5-8.0) g/dL Albumin (3.5-5.0) g/dL Lipase (8-78) U/L Urine Color Urine Appearance Urine pH (5.0-8.0) Ur Specific [place] (1.005-1.025) Urine Protein (NEG-TRACE) MG/DL Urine Glucose (UA) (NEG) MG/DL Urine Ketones (NEG) MG/DL Urine Blood (NEG) Urine Nitrite (NEG) Ur Leukocyte Esterase (NEG) Urine Opiates Screen (Not Detect) Ur Barbiturates Screen (Not Detect) Ur Phencyclidine Scrn (Not Detect) Ur Amphetamines Screen (Not Detect) U Benzodiazepines Scrn (Not Detect) Urine Cocaine Screen (Not Detect) U Marijuana (THC) Screen (Not Detect) Ethyl Alcohol < 10 mg/dL Acetone, Qual (Negative) COVID-19 (ABI) Negative (Negative) COVID-19 Clin Com See Note 02/06/21 02/06/21 Range/Units 12:45 12:45 WBC (4.8-10.8) X10*3/uL RBC (4.60-5.80) X10*6/uL Hgb (14.0-18.0) g/dl Hct (42-52) % MCV (80-98) fL MCH (27.0-33.0) pg MCHC (31.0-36.0) g/dl RDW (11.0-16.0) % Plt Count (160-400) X10*3/uL MPV (9.4-12.4) fL Immature Gran % (Auto) (0.0-0.4) % Neut % (Auto) (45-73) % Lymph % (Auto) (20-40) % [place] % (Auto) (2-11) % Eos % (Auto) (0-4) % Baso % (Auto) (0-2) % Lymph # (Auto) (1.2-4.9) X10*3/uL [place] # (Auto) (0.1-1.2) X10*3/uL Eos # (Auto) (0.0-0.4) X10*3/uL Baso # (Auto) (0.0-0.2) X10*3/uL Abs Immat Gran (auto) (0.00-0.03) X10*3/uL Absolute Neuts (auto) (2.0-8.3) X10*3/uL Absolute Nucleated RBC (0.0-0.012) X10*3/uL Nucleated RBC % (auto) (0.0-0.2) /100WBC Smear Tech's Comments Hold Blue Top VBG pH (7.32-7.43) VBG pCO2 mmHg VBG pO2 mmHg VBG HCO3 (22-26) mmol/L VBG O2 Saturation % VBG Base Excess mmol/L Sodium (135-145) mmol/L Potassium (3.3-5.1) mmol/L Chloride (96-108) mmol/L Carbon Dioxide (22-29) mmol/L Anion Gap (12-20) BUN (9-16) mg/dL Creatinine (0.5-1.4) mg/dL Estim Creat Clear Calc Estimated GFR Random Glucose (60-115) mg/dL Calcium (8.4-10.2) mg/dL Magnesium (1.6-2.6) mg/dL Total Bilirubin (0.0-1.0) mg/dL Direct Bilirubin (0.0-0.5) mg/dL AST (5-37) U/L ALT (0-40) U/L Alkaline Phosphatase (39-117) U/L Total Protein (6.5-8.0) g/dL Albumin (3.5-5.0) g/dL Lipase (8-78) U/L Urine Color YELLOW Urine Appearance CLEAR Urine pH 8.0 (5.0-8.0) Ur Specific [place] 1.010 (1.005-1.025) Urine Protein NEG (NEG-TRACE) MG/DL Urine Glucose (UA) 500 H (NEG) MG/DL Urine Ketones 15 (NEG) MG/DL Urine Blood NEG (NEG) Urine Nitrite NEG (NEG) Ur Leukocyte Esterase NEG (NEG) Urine Opiates Screen Not Detected (Not Detect) Ur Barbiturates Screen Not Detected (Not Detect) Ur Phencyclidine Scrn Not Detected (Not Detect) Ur Amphetamines Screen Not Detected (Not Detect) U Benzodiazepines Scrn Not Detected (Not Detect) Urine Cocaine Screen POSITIVE H (Not Detect) U Marijuana (THC) Screen POSITIVE H (Not Detect) Ethyl Alcohol mg/dL Acetone, Qual (Negative) COVID-19 (ABI) (Negative) COVID-19 Clin Com Critical Care Time Critical Care Time Critical Care Time: Yes Total Critical Care Time: 30 Attestation: repeat IVF, anti emetics I attest to this time spent taking care of the patient Discharge Plan Discharge Clinical Impression: Dehydration Vomiting Qualifiers: Vomiting type: unspecified Vomiting Intractability: non-intractable Nausea presence: with nausea Qualified Code(s): R11.2 - Nausea with vomiting, unspecified Patient Disposition: Home, Self-Care Instructions: Acute Nausea and Vomiting (ED) Additional Instructions: return to ED for any worsening symptoms or concerns Prescriptions: New ondansetron 4 mg tablet,disintegrating 4 mg PO Q8H PRN (Reason: nausea and vomiting) Qty: 20 RF: 0 No Action metoclopramide HCl [Reglan] 10 mg tablet 10 mg PO Q6H PRN (Reason: nausea and vomiting) Qty: 15 RF: 0 insulin lispro [Humalog KwikPen Insulin] 100 unit/mL Insulin Pen 50 unit SUBCUT DAILY RF: 0 Referrals: Physician,Unknown [Primary Care Provider] - 2 days Stand Alone Forms: Work/School Release Interventions: ED Discharge Assessment Last Done: 02/06/21 14:56 Discharge Date/Time: 02/06/21 14:56
[2021-02-06 09:25] LABS: Basophils Absolute Auto 0.1 X10*3/uL (0.0-0.2); Basophils Percent Auto 0.3 % (0-2); Hematocrit 46.1 % (42-52); Hemoglobin 16.2 g/dl (14.0-18.0); Imm Gran Abs Auto 0.15 X10*3/uL (0.00-0.03); Imm Gran Pct Auto 0.6 % (0.0-0.4); Lymphocytes Absolute Auto 1.2 X10*3/uL (1.2-4.9); Lymphocytes Percent Auto 5.1 % (20-40); MANUAL DIFF FLAG SCAN; Mean Corpuscular HGB Conc 35.1 g/dl (31.0-36.0); Mean Corpuscular Hemoglobin 33.6 pg (27.0-33.0); Mean Corpuscular Volume 95.6 fL (80-98); Mean Platelet Volume 10.4 fL (9.4-12.4); Monocytes Absolute Auto 1.4 X10*3/uL (0.1-1.2); Monocytes Percent Auto 6.1 % (2-11); Neutrophils Absolute Auto 20.6 X10*3/uL (2.0-8.3); Neutrophils Percent Auto 87.9 % (45-73); Platelet Count 365 X10*3/uL (160-400); Red Blood Count 4.82 X10*6/uL (4.60-5.80); Red Cell Distribution Width 12.7 % (11.0-16.0); SCAN SMEAR FLAG 1; White Blood Count 23.5 X10*3/uL (4.8-10.8)
[2021-02-06 09:29] LABS: Venous Blood Gas Refer to POC result
[2021-02-06 09:30] LABS: VBG Base Excess -0.6 mmol/L; VBG HCO3 19 mmol/L (22-26); VBG pCO2 23 mmHg; VBG pH 7.53 (7.32-7.43); VBG pO2 138 mmHg
[2021-02-06] MEDS: Haloperidol Lactate 5 MG/ML VIAL IM (09:38)
[2021-02-06] MEDS: diphenhydrAMINE HCL 50 MG/ML VIAL 25 MG IVPUSH (09:38)
[2021-02-06] MEDS: 0.9 % Sodium Chloride 1,000 ML 999 ML IVCONT ×2 (09:38→11:41)
[2021-02-06] MEDS: Metoclopramide HCl 10 MG/2 ML VIAL IVPUSH (09:38)
[2021-02-06 09:45] LABS: COVID-19 Test Negative (Negative)
[2021-02-06 09:53] LABS: SLIDE REVIEW VERIFIED
[2021-02-06 10:08] LABS: Ethanol < 10 mg/dL
[2021-02-06 10:13] LABS: Alanine Aminotransferase 11 U/L (0-40); Albumin Level 4.8 g/dL (3.5-5.0); Alkaline Phosphatase 67 U/L (39-117); Anion Gap 19 (12-20); Aspartate Amino Transferase 22 U/L (5-37); Bilirubin Direct 0.5 mg/dL (0.0-0.5); Bilirubin Total 0.9 mg/dL (0.0-1.0); Blood Urea Nitrogen 13 mg/dL (9-16); Calcium 10.3 mg/dL (8.4-10.2); Carbon Dioxide 20 mmol/L (22-29); Chloride 102 mmol/L (96-108); Estimated Glomerular Filt Rate > 60; Glucose Random 305 mg/dL (60-115); Lipase 9 U/L (8-78); Magnesium 1.6 mg/dL (1.6-2.6); Potassium 5.4 mmol/L (3.3-5.1); Sodium 136 mmol/L (135-145); Total Protein 7.9 g/dL (6.5-8.0)
[2021-02-06 10:27] LABS: Acetone, serum QL Negative (Negative)
[2021-02-06 12:58] LABS: Glucose Urine UA 500 MG/DL (NEG); Leukocyte Esterase Urine NEG (NEG); Nitrite Urine NEG (NEG); Urine Blood NEG (NEG); Urine Ketones 15 MG/DL (NEG); Urine Protein NEG (NEG-TRACE)
[2021-02-06 13:06] LABS: Appearance Urine CLEAR; Color Urine YELLOW
[2021-02-06 13:15] LABS: Amphetamine Screen Urine Not Detected (Not Detect); Barbiturates, Urine Not Detected (Not Detect); Benzodiazepines Screen Urine Not Detected (Not Detect); Cannabinoid Screen Urine POSITIVE (Not Detect); Cocaine Screen Urine POSITIVE (Not Detect); Opiate Screen Urine Not Detected (Not Detect); Phencyclidine Screen Urine Not Detected (Not Detect)
== END 2021-02-06 14:56 | disposition home or self-care (01) ==
PROVIDERS: Emergency Provider Emergency Medicine
DX: E86.0 Dehydration (principal); R11.2 Nausea with vomiting, unspecified; Z20.822 Contact with and (suspected) exposure to COVID-19; E10.9 Type 1 diabetes mellitus without complications; Z79.4 Long term (current) use of insulin; F12.90 Cannabis use, unspecified, uncomplicated; F14.90 Cocaine use, unspecified, uncomplicated
CPT/HCPCS: 36415; 80048; 80076; 80307; 80320; 81003; 82009; 83690; 83735; 85025; 87635; 96361; 96372; 96374; 96375; 99283; 99291; J1200; J2765

== ENCOUNTER 2021-03-24 17:47 | Emergency (ER) | payer MEDICAID, SELFPAY ==
[2021-03-24 17:51] VITALS: BP 140/106; PULSE 126; RESP 18; TEMP 36.7; O2SAT 98; BMI 25.8
[2021-03-24] MEDS: diphenhydrAMINE HCL 50 MG/ML VIAL IVPUSH (18:22)
[2021-03-24] MEDS: 0.9 % Sodium Chloride 1,000 ML 999 ML IV ×3 (18:22→21:05)
[2021-03-24] MEDS: Metoclopramide HCl 10 MG/2 ML VIAL IVPUSH (18:22)
[2021-03-24] MEDS: Haloperidol Lactate 5 MG/ML VIAL IM (18:29)
[2021-03-24 18:34] LABS: MANUAL DIFF FLAG NO
[2021-03-24 18:36] LABS: Basophils Absolute Auto 0.1 X10*3/uL (0.0-0.2); Basophils Percent Auto 0.5 % (0-2); Eosinophils Percent Auto 0.1 % (0-4); Hematocrit 44.7 % (42-52); Imm Gran Abs Auto 0.09 X10*3/uL (0.00-0.03); Imm Gran Pct Auto 0.4 % (0.0-0.4); Lymphocytes Absolute Auto 1.2 X10*3/uL (1.2-4.9); Lymphocytes Percent Auto 6.1 % (20-40); Mean Corpuscular HGB Conc 35.8 g/dl (31.0-36.0); Mean Corpuscular Hemoglobin 34.6 pg (27.0-33.0); Mean Corpuscular Volume 96.8 fL (80-98); Mean Platelet Volume 10.5 fL (9.4-12.4); Monocytes Absolute Auto 1.4 X10*3/uL (0.1-1.2); Neutrophils Absolute Auto 17.3 X10*3/uL (2.0-8.3); Neutrophils Percent Auto 85.9 % (45-73); Platelet Count 384 X10*3/uL (160-400); Red Blood Count 4.62 X10*6/uL (4.60-5.80); Red Cell Distribution Width 11.9 % (11.0-16.0); White Blood Count 20.1 X10*3/uL (4.8-10.8)
[2021-03-24 18:41] LABS: INTERNATIONAL NORM RATIO 1.2 (0.9-1.1); Prothrombin Time 14.5 SEC (10.8-13.0)
[2021-03-24 18:43] LABS: Partial Thromboplastin Time 28.4 SEC (24.1-38.0)
[2021-03-24 19:02] LABS: Alanine Aminotransferase 10 U/L (0-40); Albumin Level 4.8 g/dL (3.5-5.0); Alkaline Phosphatase 60 U/L (39-117); Aspartate Amino Transferase 30 U/L (5-37); Bilirubin Direct 0.7 mg/dL (0.0-0.5); Bilirubin Total 1.5 mg/dL (0.0-1.0); Blood Urea Nitrogen 21 mg/dL (9-16); Estimated Glomerular Filt Rate 59; Glucose Random 270 mg/dL (60-115); Lipase 13 U/L (8-78); Total Protein 7.6 g/dL (6.5-8.0)
[2021-03-24 19:08] LABS: Glucose, Whole Blood 257 mg/dL (60-115)
[2021-03-24 19:10] LABS: Anion Gap 25 (12-20); Calcium 10.4 mg/dL (8.4-10.2); Carbon Dioxide 20 mmol/L (22-29); Chloride 96 mmol/L (96-108); Potassium 5.6 mmol/L (3.3-5.1); Sodium 135 mmol/L (135-145)
[2021-03-24 19:31] LABS: Acetone, serum QL Small (Negative)
[2021-03-24] MEDS: Insulin Regular, Human 100 UNIT/ML 3 ML VIAL 7 UNIT IVPUSH (19:42)
[2021-03-24] MEDS: LORazepam 2 MG/ML VIAL 1 MG IVPUSH (19:43)
--- NOTE | 2021-03-24 21:12 | ED.NAVMDI ---
HPI - Nausea/Vomiting/Diarrhea General Chief complaint: Nausea/Vomiting/Diarrhea <JAJA Cast Last Filed: 03/24/21 21:28> Stated complaint: vomiting x i month <JAJA Csat Last Filed: 03/24/21 21:28> Time Seen by Provider: 03/24/21 17:58 <JAJA Cast Last Filed: 03/24/21 21:28> Source: patient <JAJA Cast Last Filed: 03/24/21 21:28> Mode of arrival: ambulatory <JAJA Cast Last Filed: 03/24/21 21:28> Limitations: no limitations <JAJA Cast Last Filed: 03/24/21 21:28> History of Present Illness HPI Narrative: Patient presents to ED for nausea and vomiting for over a month. Patient has history of cyclic vomiting. Patient denies any abdominal pain, chest pain, or shortness of breath. Patient denies any dysuria, hematuria, flank pain, testicular pain, penile discharge, fever, chills, coughing, chest pain, or shortness of breath. Was seen earlier this month with similar presentation has been at multiple ERs for same issue. <JAJA Cast Last Filed: 03/24/21 21:28> MD elicited complaint: nausea and vomiting <JAJA Cast Last Filed: 03/24/21 21:28> Related Data Home medications: Home Medications Medication Instructions Recorded Confirmed insulin lispro [Humalog KwikPen 50 unit SUBCUT DAILY 11/06/20 11/06/20 Insulin] Previous Rx's Medication Instructions Recorded metoclopramide HCl [Reglan] 10 mg PO Q6H PRN #15 tab 10/07/20 ondansetron 4 mg PO Q8H PRN #20 tab 02/06/21 <JAJA Cast Last Filed: 03/24/21 21:28> Allergies/Adverse reactions: Allergies Allergy/AdvReac Type Severity Reaction Status Date / Time No Known Allergies Allergy Mild NKA Verified 10/07/20 09:24 <JAJA Cast Last Filed: 03/24/21 21:28> Review of Systems Review of Systems: Yes all other systems are reviewed and are negative <JAJA Cast Last Filed: 03/24/21 21:28> Constitutional: Constitutional: Reports as per HPI and Reports no additional constitutional complaints <JAJA Cast Last Filed: 03/24/21 21:28> Eyes: Eyes: Reports as per HPI and Reports no additional eye complaints <JAJA Cast Last Filed: 03/24/21 21:28> ENT: Reports system reviewed and no additional complaints, except as documented and Reports as per HPI <JAJA Cast Last Filed: 03/24/21 21:28> Cardiovascular: Cardiovascular: Reports as per HPI and Reports no additional cardiovascular complaints <JAJA Cast Last Filed: 03/24/21 21:28> Respiratory: Respiratory: Reports as per HPI and Reports no additional respiratory complaints <JAJA Cast Last Filed: 03/24/21 21:28> Gastrointestinal: Gastrointestinal: Reports as per HPI and Reports no additional gastrointestinal complaints <JAJA Cast Last Filed: 03/24/21 21:28> Genitourinary: Genitourinary: Reports no additional male genitourinary complaints and Reports as per HPI <JAJA Cast Last Filed: 03/24/21 21:28> Musculoskeletal: Musculoskeletal: Reports no additional musculoskeletal complaints and Reports as per HPI <JAJA Cast Last Filed: 03/24/21 21:28> Neurologic: Reports system reviewed and no additional complaints, except as documented and Reports as per HPI <JAJA Cast Last Filed: 03/24/21 21:28> Psychiatric: Psychiatric: Reports no additional psychiatric complaints and Reports as per HPI <JAJA Cast Last Filed: 03/24/21 21:28> PMF Past Medical History Medical History: Medical History Type 1 diabetes <JAJA Cast - Last Filed: 03/24/21 21:28> Social History Social History: Social History (Updated 02/06/21 @ 08:56 by Shana Ambrocio DO) Alcohol intake: current Alcohol intake frequency: a few times a week Alcohol type: beer Substance Use Type: Marijuana Advance Directives: No Advance Directives Information Provided: Yes <JAJA Cast - Last Filed: 03/24/21 21:28> Physical Exam Vital Signs: Vital Signs: Last Vital Signs Temp 98.1 F 03/24/21 17:51 Pulse 126 H 03/24/21 17:51 Resp 18 03/24/21 17:51 BP 140/106 H 03/24/21 17:51 Pulse Ox 98 03/24/21 17:51 Body Mass Index 25.8 <JAJA Cast - Last Filed: 03/24/21 21:28> Vital Signs: Last Vital Signs Temp 98.1 F 03/24/21 17:51 Pulse 126 H 03/24/21 17:51 Resp 18 03/24/21 17:51 BP 140/106 H 03/24/21 17:51 Pulse Ox 98 03/24/21 17:51 Body Mass Index 25.8 <Lorenzo Wall NP - Last Filed: 03/25/21 00:17> Const: General: cooperative, healthy appearing, comfortable, no acute distress, well developed, alert and awake <JAJA Cast Last Filed: 03/24/21 21:28> Orientation/consciousness: patient oriented x3 <JAJA Cast - Last Filed: 03/24/21 21:28> HENMT: Head: Yes normal to inspection, Yes No palpable skull fracture present, Yes normocephalic, Yes atraumatic and No abrasion <JAJA Cast Last Filed: 03/24/21 21:28> Eyes: General: appearance normal, both eyes and all related structures <JAJA Cast - Last Filed: 03/24/21 21:28> Neck: Neck: Yes normal visual inspection, Yes full ROM, Yes no lymphadenopathy, Yes no meningeal signs, Yes trachea midline, Yes supple and No tender <JAJA Cast - Last Filed: 03/24/21 21:28> Chest: Chest palpation & inspection: normal inspection of the chest and normal palpation of entire chest wall <JAJA Cast Last Filed: 03/24/21 21:28> Resp: Effort & Inspection: normal respiratory effort and able to speak in complete sentences <JAJA Cast Last Filed: 03/24/21 21:28> Auscultation: clear to auscultation bilaterally <JAJA Cast Last Filed: 03/24/21 21:28> Cardio: Jugular venous distension: no JVD <JAJA Cast Last Filed: 03/24/21 21:28> Heart sounds: S1 normal heart sound present and S2 normal heart sound present <JAJA Cast Last Filed: 03/24/21 21:28> GI: Inspection: Yes normal to inspection and No abdominal wall ecchymosis <JAJA Cast Last Filed: 03/24/21 21:28> Palpation (GI): Soft to palpation, not firm, nontender, no guarding and not rigid <JAJA Cast - Last Filed: 03/24/21 21:28> : General: No CVA tenderness and Yes no CVA tenderness <JAJA Cast Last Filed: 03/24/21 21:28> Back/Spine/Pelvis: Back: no CVA tenderness, No CVA tenderness and No back tenderness <JAJA Cast Last Filed: 03/24/21 21:28> Skin: General skin exam: no rashes or lesions noted and elasticity normal <JAJA Cast Last Filed: 03/24/21 21:28> Neuro: General: patient oriented x3, no meningeal signs and CN's II-XI intact bilaterally <JAJA Cast Last Filed: 03/24/21 21:28> Cranial nerves: Yes CN's II-XII intact bilaterally <JAJA Cast Last Filed: 03/24/21 21:28> Extrem: General: Yes normal to inspection and Yes full ROM <JAJA Cast Last Filed: 03/24/21 21:28> Psych: Appearance: grossly normal, well kempt and not disheveled <JAJA Cast Last Filed: 03/24/21 21:28> Course Course Course Narrative: Patient have any abdominal tenderness but due to history of diabetes will do labs and give fluids and medications. <JAJA Cast Last Filed: 03/24/21 21:28> Reevaluation(s) Reevaluation #1: Patient retching vomiting multiple times. Patient's nausea vomiting relieved after receiving Ativan, Haldol, Benadryl, Phenergan, Zofran, and fluids. Patient's glucose 257 with small wade acetone and anion gap of 25. Patient given insulin 7 with IV fluids. No need for insulin drip will repeat chemistry. No need for abdominal CT scan. The patient white blood cell count has trended patient usually has elevated white blood cell count. Signed out to [facility] to follow-up chemistry and acetone. Patient given Kayexalate for potassium of 5.6. <JAJA Cast - Last Filed: 03/24/21 21:28> Repeat labs improved. He has been resting comfortably no acute distress. Did give to her bathroom Since repeat labs he has been drink fluid and tolerating p.o. intake well. He is requesting discharge. <Lorenzo Wall NP - Last Filed: 03/25/21 00:17> Time: 21:18 <JAJA Cast - Last Filed: 03/24/21 21:28> MDM - Nausea/Vomiting/Diarrhea MDM Narrative Medical decision making narrative: Cyclic vomiting. <JAJA Cast - Last Filed: 03/24/21 21:28> Lab Data Result diagrams: : 03/24/21 18:30 03/24/21 21:38 <JAJA Cast - Last Filed: 03/24/21 21:28> Labs: Lab Results 03/24/21 03/24/21 03/24/21 Range/Units 18:30 18:30 18:30 WBC 20.1 H (4.8-10.8) X10*3/uL RBC 4.62 (4.60-5.80) X10*6/uL Hgb 16.0 (14.0-18.0) g/dl Hct 44.7 (42-52) % MCV 96.8 (80-98) fL MCH 34.6 H (27.0-33.0) pg MCHC 35.8 (31.0-36.0) g/dl RDW 11.9 (11.0-16.0) % Plt Count 384 (160-400) X10*3/uL MPV 10.5 (9.4-12.4) fL Immature Gran % (Auto) 0.4 (0.0-0.4) % Neut % (Auto) 85.9 H (45-73) % Lymph % (Auto) 6.1 L (20-40) % [place] % (Auto) 7.0 (2-11) % Eos % (Auto) 0.1 (0-4) % Baso % (Auto) 0.5 (0-2) % Lymph # (Auto) 1.2 (1.2-4.9) X10*3/uL [place] # (Auto) 1.4 H (0.1-1.2) X10*3/uL Eos # (Auto) 0.0 (0.0-0.4) X10*3/uL Baso # (Auto) 0.1 (0.0-0.2) X10*3/uL Abs Immat Gran (auto) 0.09 H (0.00-0.03) X10*3/uL Absolute Neuts (auto) 17.3 H (2.0-8.3) X10*3/uL Absolute Nucleated RBC 0.000 (0.0-0.012) X10*3/uL Nucleated RBC % (auto) 0.0 (0.0-0.2) /100WBC PT 14.5 H (10.8-13.0) SEC INR 1.2 H (0.9-1.1) APTT 28.4 (24.1-38.0) SEC Sodium 135 (135-145) mmol/L Potassium 5.6 H (3.3-5.1) mmol/L Chloride 96 (96-108) mmol/L Carbon Dioxide 20 L (22-29) mmol/L Anion Gap 25 H (12-20) BUN 21 H D (9-16) mg/dL Creatinine 1.37 (0.5-1.4) mg/dL Estim Creat Clear Calc 71.0 Estimated GFR 59 POC Glucose (60-115) mg/dL Random Glucose 270 H (60-115) mg/dL Calcium 10.4 H (8.4-10.2) mg/dL Total Bilirubin 1.5 H (0.0-1.0) mg/dL Direct Bilirubin 0.7 H (0.0-0.5) mg/dL AST 30 (5-37) U/L ALT 10 (0-40) U/L Alkaline Phosphatase 60 (39-117) U/L Total Protein 7.6 (6.5-8.0) g/dL Albumin 4.8 (3.5-5.0) g/dL Lipase 13 (8-78) U/L Acetone, Qual Small H (Negative) 03/24/21 03/24/21 03/24/21 Range/Units 19:05 21:38 21:42 WBC (4.8-10.8) X10*3/uL RBC (4.60-5.80) X10*6/uL Hgb (14.0-18.0) g/dl Hct (42-52) % MCV (80-98) fL MCH (27.0-33.0) pg MCHC (31.0-36.0) g/dl RDW (11.0-16.0) % Plt Count (160-400) X10*3/uL MPV (9.4-12.4) fL Immature Gran % (Auto) (0.0-0.4) % Neut % (Auto) (45-73) % Lymph % (Auto) (20-40) % [place] % (Auto) (2-11) % Eos % (Auto) (0-4) % Baso % (Auto) (0-2) % Lymph # (Auto) (1.2-4.9) X10*3/uL [place] # (Auto) (0.1-1.2) X10*3/uL Eos # (Auto) (0.0-0.4) X10*3/uL Baso # (Auto) (0.0-0.2) X10*3/uL Abs Immat Gran (auto) (0.00-0.03) X10*3/uL Absolute Neuts (auto) (2.0-8.3) X10*3/uL Absolute Nucleated RBC (0.0-0.012) X10*3/uL Nucleated RBC % (auto) (0.0-0.2) /100WBC PT (10.8-13.0) SEC INR (0.9-1.1) APTT (24.1-38.0) SEC Sodium 135 (135-145) mmol/L Potassium 4.5 (3.3-5.1) mmol/L Chloride 104 (96-108) mmol/L Carbon Dioxide 18 L (22-29) mmol/L Anion Gap 18 (12-20) BUN 19 H (9-16) mg/dL Creatinine 1.14 (0.5-1.4) mg/dL Estim Creat Clear Calc 85.3 Estimated GFR > 60 POC Glucose 257 H 184 H (60-115) mg/dL Random Glucose 194 H (60-115) mg/dL Calcium 9.0 D (8.4-10.2) mg/dL Total Bilirubin 1.2 H (0.0-1.0) mg/dL Direct Bilirubin (0.0-0.5) mg/dL AST 27 (5-37) U/L ALT 8 (0-40) U/L Alkaline Phosphatase 52 (39-117) U/L Total Protein 6.3 L (6.5-8.0) g/dL Albumin 4.0 (3.5-5.0) g/dL Lipase (8-78) U/L Acetone, Qual Small H (Negative) <JAJA Cast - Last Filed: 03/24/21 21:28> Lab Results 03/24/21 03/24/21 03/24/21 Range/Units 18:30 18:30 18:30 WBC 20.1 H (4.8-10.8) X10*3/uL RBC 4.62 (4.60-5.80) X10*6/uL Hgb 16.0 (14.0-18.0) g/dl Hct 44.7 (42-52) % MCV 96.8 (80-98) fL MCH 34.6 H (27.0-33.0) pg MCHC 35.8 (31.0-36.0) g/dl RDW 11.9 (11.0-16.0) % Plt Count 384 (160-400) X10*3/uL MPV 10.5 (9.4-12.4) fL Immature Gran % (Auto) 0.4 (0.0-0.4) % Neut % (Auto) 85.9 H (45-73) % Lymph % (Auto) 6.1 L (20-40) % [place] % (Auto) 7.0 (2-11) % Eos % (Auto) 0.1 (0-4) % Baso % (Auto) 0.5 (0-2) % Lymph # (Auto) 1.2 (1.2-4.9) X10*3/uL [place] # (Auto) 1.4 H (0.1-1.2) X10*3/uL Eos # (Auto) 0.0 (0.0-0.4) X10*3/uL Baso # (Auto) 0.1 (0.0-0.2) X10*3/uL Abs Immat Gran (auto) 0.09 H (0.00-0.03) X10*3/uL Absolute Neuts (auto) 17.3 H (2.0-8.3) X10*3/uL Absolute Nucleated RBC 0.000 (0.0-0.012) X10*3/uL Nucleated RBC % (auto) 0.0 (0.0-0.2) /100WBC PT 14.5 H (10.8-13.0) SEC INR 1.2 H (0.9-1.1) APTT 28.4 (24.1-38.0) SEC Sodium 135 (135-145) mmol/L Potassium 5.6 H (3.3-5.1) mmol/L Chloride 96 (96-108) mmol/L Carbon Dioxide 20 L (22-29) mmol/L Anion Gap 25 H (12-20) BUN 21 H D (9-16) mg/dL Creatinine 1.37 (0.5-1.4) mg/dL Estim Creat Clear Calc 71.0 Estimated GFR 59 POC Glucose (60-115) mg/dL Random Glucose 270 H (60-115) mg/dL Calcium 10.4 H (8.4-10.2) mg/dL Total Bilirubin 1.5 H (0.0-1.0) mg/dL Direct Bilirubin 0.7 H (0.0-0.5) mg/dL AST 30 (5-37) U/L ALT 10 (0-40) U/L Alkaline Phosphatase 60 (39-117) U/L Total Protein 7.6 (6.5-8.0) g/dL Albumin 4.8 (3.5-5.0) g/dL Lipase 13 (8-78) U/L Acetone, Qual Small H (Negative) 03/24/21 03/24/21 03/24/21 Range/Units 19:05 21:38 21:42 WBC (4.8-10.8) X10*3/uL RBC (4.60-5.80) X10*6/uL Hgb (14.0-18.0) g/dl Hct (42-52) % MCV (80-98) fL MCH (27.0-33.0) pg MCHC (31.0-36.0) g/dl RDW (11.0-16.0) % Plt Count (160-400) X10*3/uL MPV (9.4-12.4) fL Immature Gran % (Auto) (0.0-0.4) % Neut % (Auto) (45-73) % Lymph % (Auto) (20-40) % [place] % (Auto) (2-11) % Eos % (Auto) (0-4) % Baso % (Auto) (0-2) % Lymph # (Auto) (1.2-4.9) X10*3/uL [place] # (Auto) (0.1-1.2) X10*3/uL Eos # (Auto) (0.0-0.4) X10*3/uL Baso # (Auto) (0.0-0.2) X10*3/uL Abs Immat Gran (auto) (0.00-0.03) X10*3/uL Absolute Neuts (auto) (2.0-8.3) X10*3/uL Absolute Nucleated RBC (0.0-0.012) X10*3/uL Nucleated RBC % (auto) (0.0-0.2) /100WBC PT (10.8-13.0) SEC INR (0.9-1.1) APTT (24.1-38.0) SEC Sodium 135 (135-145) mmol/L Potassium 4.5 (3.3-5.1) mmol/L Chloride 104 (96-108) mmol/L Carbon Dioxide 18 L (22-29) mmol/L Anion Gap 18 (12-20) BUN 19 H (9-16) mg/dL Creatinine 1.14 (0.5-1.4) mg/dL Estim Creat Clear Calc 85.3 Estimated GFR > 60 POC Glucose 257 H 184 H (60-115) mg/dL Random Glucose 194 H (60-115) mg/dL Calcium 9.0 D (8.4-10.2) mg/dL Total Bilirubin 1.2 H (0.0-1.0) mg/dL Direct Bilirubin (0.0-0.5) mg/dL AST 27 (5-37) U/L ALT 8 (0-40) U/L Alkaline Phosphatase 52 (39-117) U/L Total Protein 6.3 L (6.5-8.0) g/dL Albumin 4.0 (3.5-5.0) g/dL Lipase (8-78) U/L Acetone, Qual Small H (Negative) <Lorenzo Wall NP - Last Filed: 03/25/21 00:17> Discharge Plan Discharge Clinical Impression: Cyclical vomiting <JAJA Cast - Last Filed: 03/24/21 21:28> Patient Disposition: Home, Self-Care <JAJA Cast - Last Filed: 03/24/21 21:28> Instructions: Cyclic Vomiting Syndrome (ED) <JAJA Cast - Last Filed: 03/24/21 21:28> Additional Instructions: Gradually increase her diet as tolerated Return to emergency room if any concerns or worsening symptoms otherwise follow-up with her primary care doctor closely Thank you <AJJA Cast - Last Filed: 03/24/21 21:28> Prescriptions: No Action metoclopramide HCl [Reglan] 10 mg tablet 10 mg PO Q6H PRN (Reason: nausea and vomiting) Qty: 15 RF: 0 insulin lispro [Humalog KwikPen Insulin] 100 unit/mL Insulin Pen 50 unit SUBCUT DAILY RF: 0 ondansetron 4 mg tablet,disintegrating 4 mg PO Q8H PRN (Reason: nausea and vomiting) Qty: 20 RF: 0 <JAJA Cast - Last Filed: 03/24/21 21:28> Referrals: Physician,Unknown [Primary Care Provider] - 2 days <JAJA Cast - Last Filed: 03/24/21 21:28>
[2021-03-24] MEDS: Sodium Polystyrene Sulfon/Sorb 15 GM/60 ML ORAL.SUSP 45 GM PO (21:30)
[2021-03-24 21:47] LABS: Glucose, Whole Blood 184 mg/dL (60-115)
[2021-03-24 22:06] LABS: Alanine Aminotransferase 8 U/L (0-40); Alkaline Phosphatase 52 U/L (39-117); Anion Gap 18 (12-20); Aspartate Amino Transferase 27 U/L (5-37); Bilirubin Total 1.2 mg/dL (0.0-1.0); Blood Urea Nitrogen 19 mg/dL (9-16); Carbon Dioxide 18 mmol/L (22-29); Chloride 104 mmol/L (96-108); Creatinine Clr Calc Pharmacy 85.3; Estimated Glomerular Filt Rate > 60; Glucose Random 194 mg/dL (60-115); Potassium 4.5 mmol/L (3.3-5.1); Sodium 135 mmol/L (135-145); Total Protein 6.3 g/dL (6.5-8.0)
[2021-03-24 22:58] LABS: Acetone, serum QL Small (Negative)
== END 2021-03-25 00:36 | disposition home or self-care (01) ==
PROVIDERS: Physician Assistant; Emergency Provider Emergency Medicine
DX: R11.15 Cyclical vomiting syndrome unrelated to migraine (principal); E10.9 Type 1 diabetes mellitus without complications
CPT/HCPCS: 36415; 80053; 80076; 82009; 82248; 82947; 83690; 85025; 85610; 85730; 96361; 96372; 96374; 96375; 99284; J1200; J2060; J2550; J2765

== ENCOUNTER 2021-06-21 05:06 | Emergency (ER) | payer MEDICAID, SELFPAY ==
[2021-06-21 05:34] VITALS: BP 135/86; PULSE 88; RESP 18; TEMP 36.2; O2SAT 96; BMI 23.5
--- NOTE | 2021-06-21 05:45 | ED_ITS ---
HPI - Nausea/Vomiting/Diarrhea General Chief complaint: Nausea/Vomiting/Diarrhea Stated complaint: Vomiting Time Seen by Provider: 06/21/21 05:45 Source: patient Mode of arrival: ambulatory Limitations: no limitations History of Present Illness HPI Narrative: Patient history of diabetes type 1 on insulin pump been vomiting for last 4 hours multiple times with diffuse abdominal cramps no fever no chills patient does have a history of cyclic vomiting syndrome patient has been here multiple times for the same noted blood sugar on the higher side on arrival it was 355 complaining of diffuse abdominal pain. No fever no chills Related Data Home Medications Medication Instructions Recorded Confirmed insulin lispro 100 unit/mL 50 unit SUBCUT DAILY 11/06/20 11/06/20 subcutaneous pen (Humalog KwikPen (U-100) Insulin) Previous Rx's Medication Instructions Recorded metoclopramide HCl 10 mg tablet 10 mg PO Q6H PRN #15 tab 10/07/20 (Reglan) ondansetron 4 mg disintegrating 4 mg PO Q8H PRN #20 tab 02/06/21 tablet ondansetron HCl 4 mg tablet 4 mg PO Q8H PRN #10 tab 03/25/21 (Zofran) lorazepam 1 mg tablet (Ativan) 1 mg PO BID PRN #20 tab 06/21/21 ondansetron 4 mg disintegrating 4 mg PO Q6-8H PRN #15 tab 06/21/21 tablet Allergies Allergy/AdvReac Type Severity Reaction Status Date / Time No Known Allergies Allergy Mild NKA Verified 10/07/20 09:24 Review of Systems Review of Systems: Yes all other systems are reviewed and are negative PMFSH Past Medical History Medical History Type 1 diabetes Social History Social History Alcohol intake: current Alcohol intake frequency: a few times a week Alcohol type: beer Substance Use Type: Marijuana Advance Directives: No Physical Exam Vital Signs: Vital Signs: Last Vital Signs Temp 97.2 F 06/21/21 05:34 Pulse 88 06/21/21 05:34 Resp 18 06/21/21 05:34 BP 135/86 06/21/21 05:34 Pulse Ox 96 06/21/21 05:34 Body Mass Index 23.5 Appearance: Alert. Oriented X3. In moderate distress anxious actively vomiting Eyes: No pallor or icterus ENT: Pharynx normal. Oral Mucosa moist Neck: Normal inspection. Neck supple. CVS: Normal heart rate and rhythm. Pulses normal. Respiratory: No respiratory distress. Equal air entry bilateral, no wheezing/rales/rhonchi Abdomen: Soft diffuse abdominal tenderness Bowel sounds are present, no mass palpable, no CVA tenderness Skin: Skin warm and dry. Normal skin color. Normal skin turgor. Extremities: No lower extremity edema. No calf tenderness Neuro: Oriented X 3. MDM - Nausea/Vomiting/Diarrhea MDM Narrative Medical decision making narrative: 6:20 amPatient's history of anxiety, slow gastric emptying and cyclic vomiting syndrome diabetic lab workup showed elevated WBC count 21.6K which been there in the past also venous gases shows metabolic alkalosis not acidosis. Patient responded to Ativan relax at this time would give IV fluids waiting for the remaining labs 640 am : Serum acetone negative and an gap 20 patient feeling much better after Ativan taking p.o. fluids will correct himself for blood sugar using his insulin pump. Plan to discharge him home after 2 L of IV fluid Medical Records Attestation: I reviewed the patient's medical records. Lab Data Attestation: I reviewed the patient's lab results. Result diagrams: 06/21/21 06:08 06/21/21 06:08 Labs: Lab Results 06/21/21 06/21/21 06/21/21 Range/Units 05:49 06:08 06:08 WBC 21.6 H (4.8-10.8) X10*3/uL RBC 4.71 (4.60-5.80) X10*6/uL Hgb 15.9 (14.0-18.0) g/dl Hct 44.0 (42-52) % MCV 93.4 (80-98) fL MCH 33.8 H (27.0-33.0) pg MCHC 36.1 H (31.0-36.0) g/dl RDW 13.0 (11.0-16.0) % Plt Count 410 H (160-400) X10*3/uL MPV 10.2 (9.4-12.4) fL Immature Gran % (Auto) 0.8 H (0.0-0.4) % Neut % (Auto) 87.7 H (45-73) % Lymph % (Auto) 5.1 L (20-40) % [place] % (Auto) 6.0 (2-11) % Eos % (Auto) 0.0 (0-4) % Baso % (Auto) 0.4 (0-2) % Lymph # (Auto) 1.1 L (1.2-4.9) X10*3/uL [place] # (Auto) 1.3 H (0.1-1.2) X10*3/uL Eos # (Auto) 0.0 (0.0-0.4) X10*3/uL Baso # (Auto) 0.1 (0.0-0.2) X10*3/uL Abs Immat Gran (auto) 0.17 H (0.00-0.03) X10*3/uL Absolute Neuts (auto) 18.9 H (2.0-8.3) X10*3/uL Absolute Nucleated RBC 0.000 (0.0-0.012) X10*3/uL Nucleated RBC % (auto) 0.0 (0.0-0.2) /100WBC VBG pH (7.32-7.43) VBG pCO2 mmHg VBG pO2 mmHg VBG HCO3 (22-26) mmol/L VBG O2 Saturation % VBG Base Excess mmol/L Sodium 136 (135-145) mmol/L Potassium 4.9 (3.3-5.1) mmol/L Chloride 101 (96-108) mmol/L Carbon Dioxide 20 L (22-29) mmol/L Anion Gap 20 (12-20) BUN 11 (9-16) mg/dL Creatinine 1.21 (0.5-1.4) mg/dL Estim Creat Clear Calc 79.6 Estimated GFR > 60 POC Glucose 355 H* (60-115) mg/dL Random Glucose 402 H* (60-115) mg/dL Calcium 10.1 D (8.4-10.2) mg/dL Acetone, Qual Negative (Negative) 06/21/21 Range/Units 06:11 WBC (4.8-10.8) X10*3/uL RBC (4.60-5.80) X10*6/uL Hgb (14.0-18.0) g/dl Hct (42-52) % MCV (80-98) fL MCH (27.0-33.0) pg MCHC (31.0-36.0) g/dl RDW (11.0-16.0) % Plt Count (160-400) X10*3/uL MPV (9.4-12.4) fL Immature Gran % (Auto) (0.0-0.4) % Neut % (Auto) (45-73) % Lymph % (Auto) (20-40) % [place] % (Auto) (2-11) % Eos % (Auto) (0-4) % Baso % (Auto) (0-2) % Lymph # (Auto) (1.2-4.9) X10*3/uL [place] # (Auto) (0.1-1.2) X10*3/uL Eos # (Auto) (0.0-0.4) X10*3/uL Baso # (Auto) (0.0-0.2) X10*3/uL Abs Immat Gran (auto) (0.00-0.03) X10*3/uL Absolute Neuts (auto) (2.0-8.3) X10*3/uL Absolute Nucleated RBC (0.0-0.012) X10*3/uL Nucleated RBC % (auto) (0.0-0.2) /100WBC VBG pH 7.54 H (7.32-7.43) VBG pCO2 24 mmHg VBG pO2 95 mmHg VBG HCO3 21 L (22-26) mmol/L VBG O2 Saturation 99.0 % VBG Base Excess 1.2 mmol/L Sodium (135-145) mmol/L Potassium (3.3-5.1) mmol/L Chloride (96-108) mmol/L Carbon Dioxide (22-29) mmol/L Anion Gap (12-20) BUN (9-16) mg/dL Creatinine (0.5-1.4) mg/dL Estim Creat Clear Calc Estimated GFR POC Glucose (60-115) mg/dL Random Glucose (60-115) mg/dL Calcium (8.4-10.2) mg/dL Acetone, Qual (Negative) Discharge Plan Discharge Clinical Impression: Cyclic vomiting syndrome Patient Disposition: Home, Self-Care Instructions: Acute Nausea and Vomiting (ED) Additional Instructions: Drink plenty of fluids Take medication for anxiety as prescribed Take Zofran for vomiting Follow-up with superintendent communications Prescriptions: New ondansetron 4 mg tablet,disintegrating 4 mg PO Q6-8H PRN (Reason: nausea and vomiting) Qty: 15 RF: 0 lorazepam [Ativan] 1 mg tablet 1 mg PO BID PRN (Reason: anxiety) Qty: 20 RF: 0 No Action metoclopramide HCl [Reglan] 10 mg tablet 10 mg PO Q6H PRN (Reason: nausea and vomiting) Qty: 15 RF: 0 ondansetron HCl [Zofran] 4 mg tablet 4 mg PO Q8H PRN (Reason: nausea and vomiting) Qty: 10 RF: 0 insulin lispro [Humalog KwikPen Insulin] 100 unit/mL Insulin Pen 50 unit SUBCUT DAILY RF: 0 ondansetron 4 mg tablet,disintegrating 4 mg PO Q8H PRN (Reason: nausea and vomiting) Qty: 20 RF: 0
[2021-06-21 05:53] LABS: Glucose, Whole Blood 355 mg/dL (60-115)
[2021-06-21 06:13] LABS: MANUAL DIFF FLAG NO
[2021-06-21 06:14] LABS: Basophils Absolute Auto 0.1 X10*3/uL (0.0-0.2); Basophils Percent Auto 0.4 % (0-2); Hemoglobin 15.9 g/dl (14.0-18.0); Imm Gran Abs Auto 0.17 X10*3/uL (0.00-0.03); Imm Gran Pct Auto 0.8 % (0.0-0.4); Lymphocytes Absolute Auto 1.1 X10*3/uL (1.2-4.9); Lymphocytes Percent Auto 5.1 % (20-40); Mean Corpuscular HGB Conc 36.1 g/dl (31.0-36.0); Mean Corpuscular Hemoglobin 33.8 pg (27.0-33.0); Mean Corpuscular Volume 93.4 fL (80-98); Mean Platelet Volume 10.2 fL (9.4-12.4); Monocytes Absolute Auto 1.3 X10*3/uL (0.1-1.2); Neutrophils Absolute Auto 18.9 X10*3/uL (2.0-8.3); Neutrophils Percent Auto 87.7 % (45-73); Platelet Count 410 X10*3/uL (160-400); Red Blood Count 4.71 X10*6/uL (4.60-5.80); White Blood Count 21.6 X10*3/uL (4.8-10.8)
[2021-06-21 06:15] LABS: Venous Blood Gas Refer to POC result
[2021-06-21 06:17] LABS: VBG Base Excess 1.2 mmol/L; VBG HCO3 21 mmol/L (22-26); VBG pCO2 24 mmHg; VBG pH 7.54 (7.32-7.43); VBG pO2 95 mmHg
[2021-06-21] MEDS: ondansetron HCL 4 MG/2 ML VIAL IVPUSH (06:17)
[2021-06-21] MEDS: 0.9 % Sodium Chloride 1,000 ML 999 ML IVCONT ×2 (06:17→06:18)
[2021-06-21] MEDS: LORazepam 2 MG/ML VIAL IVPUSH (06:17)
[2021-06-21 06:22] LABS: Acetone, serum QL Negative (Negative)
[2021-06-21 06:30] LABS: Anion Gap 20 (12-20); Blood Urea Nitrogen 11 mg/dL (9-16); Calcium 10.1 mg/dL (8.4-10.2); Carbon Dioxide 20 mmol/L (22-29); Chloride 101 mmol/L (96-108); Creatinine Clr Calc Pharmacy 79.6; Estimated Glomerular Filt Rate > 60; Glucose Random 402 mg/dL (60-115); Potassium 4.9 mmol/L (3.3-5.1); Sodium 136 mmol/L (135-145)
--- NOTE | 2021-06-21 06:52 | PC.NURSE ---
Patient's blood sugar was 359 and patient ordered 14 units of Regular insulin. Patient has an insulin pump and stated 14 units would be too much. Patient made adjustment on his pump and is also receiving normal saline. MD aware and cancelled order for insulin.
--- NOTE | 2021-06-21 07:23 | PC.NURSE ---
pt received in bed, arousable to voice. Needs 2L NS prior to d/c. Pt had arm bent, IV occluded. Straightened arm, flushed line, fluid now infusing. Pt understands will need to keep arm straight, and that once fluid is infused he can be discharged. A/O, moves all extramities, follows commands. Speech clear and coherent. No distress noted. Patient understands plan for d/c.
[2021-06-21 08:01] VITALS: BP 90/60; PULSE 69; RESP 12; TEMP 37; O2SAT 96
== END 2021-06-21 08:12 | disposition home or self-care (01) ==
PROVIDERS: Emergency Provider Internal Medicine
DX: R11.15 Cyclical vomiting syndrome unrelated to migraine (principal); R11.2 Nausea with vomiting, unspecified; F12.90 Cannabis use, unspecified, uncomplicated; Z79.899 Other long term (current) drug therapy
CPT/HCPCS: 36415; 80048; 82009; 82803; 82947; 85025; 96361; 96374; 96375; 99284; J2060; J2405

== ENCOUNTER 2022-01-18 03:03 | Emergency (ER) | payer MEDICAID, SELFPAY ==
[2022-01-18 03:16] VITALS: BP 112/81; PULSE 80; RESP 14; TEMP 36.4; O2SAT 99; BMI 24.3
[2022-01-18 03:20] LABS: Basophils Absolute Auto 0.1 X10*3/uL (0.0-0.2); Basophils Percent Auto 0.6 % (0-2); Eosinophils Absolute Auto 0.1 X10*3/uL (0.0-0.4); Eosinophils Percent Auto 0.3 % (0-4); Hematocrit 45.6 % (42.0-52.0); Hemoglobin 16.5 g/dl (14.0-18.0); Imm Gran Abs Auto 0.14 X10*3/uL (0.00-0.03); Imm Gran Pct Auto 0.7 % (0.0-0.4); Lymphocytes Absolute Auto 1.8 X10*3/uL (1.2-4.9); Lymphocytes Percent Auto 9.1 % (20-40); MANUAL DIFF FLAG NO; Mean Corpuscular HGB Conc 36.2 g/dl (31.0-36.0); Mean Corpuscular Hemoglobin 34.2 pg (27.0-33.0); Mean Corpuscular Volume 94.6 fL (80.0-98.0); Mean Platelet Volume 9.7 fL (9.4-12.4); Monocytes Absolute Auto 1.4 X10*3/uL (0.1-1.2); Neutrophils Absolute Auto 16.1 x10*3/uL (2.0-8.3); Neutrophils Percent Auto 82.3 % (45-73); Platelet Count 504 X10*3/uL (160-400); Red Blood Count 4.82 X10*6/uL (4.60-5.80); Red Cell Distribution Width 11.9 % (11.0-16.0); White Blood Count 19.5 X10*3/uL (4.8-10.8)
[2022-01-18 03:34] LABS: COVID-19 Test Negative (Negative); IDNOW Serial# 16C4AD1C; Influenza A Negative (Negative); Influenza B2 Negative (Negative)
[2022-01-18 03:51] LABS: Alanine Aminotransferase 13 U/L (0-40); Albumin Level 4.8 g/dL (3.5-5.0); Alkaline Phosphatase 71 U/L (39-117); Anion Gap 17 (12-20); Aspartate Amino Transferase 25 U/L (5-37); Blood Urea Nitrogen 9 mg/dL (9-16); Calcium 10.6 mg/dL (8.4-10.2); Carbon Dioxide 20 mmol/L (22-29); Chloride 104 mmol/L (96-108); Creatinine Clr Calc Pharmacy 95.9; Estimated Glomerular Filt Rate > 60; Glucose Random 142 mg/dL (60-115); Potassium 4.2 mmol/L (3.3-5.1); Sodium 137 mmol/L (135-145); Total Protein 8.2 g/dL (6.5-8.0)
[2022-01-18] MEDS: 0.9 % Sodium Chloride 2,000 ML 999 ML IV (04:07)
[2022-01-18] MEDS: ondansetron HCL 4 MG/2 ML VIAL IVPUSH (04:11)
[2022-01-18] MEDS: diphenhydrAMINE HCL 50 MG/ML VIAL 25 MG IVPUSH (04:13)
[2022-01-18] MEDS: Metoclopramide HCl 10 MG/2 ML VIAL IVPUSH (04:31)
[2022-01-18] MEDS: Famotidine/PF 20 MG/2 ML VIAL IVPUSH (05:16)
[2022-01-18 05:20] VITALS: BP 142/81; PULSE 53; RESP 16; O2SAT 100
[2022-01-18 05:25] LABS: Glucose, Whole Blood 127 mg/dL (60-115)
[2022-01-18] MEDS: LORazepam 2 MG/ML VIAL 0.5 MG IVPUSH (05:57)
--- NOTE | 2022-01-18 05:58 | ED_ITS ---
HPI - Nausea/Vomiting/Diarrhea General Chief complaint: Nausea/Vomiting/Diarrhea Stated complaint: Vomiting Time Seen by Provider: 01/18/22 03:54 Source: patient and family Mode of arrival: ambulatory History of Present Illness HPI Narrative: 36-year-old male with history of diabetes and cyclical vomiting arrives with onset repeated nausea and vomiting for the past 6 hours and no history to suggest food contamination, fevers, chills, diarrhea, urinary symptoms. Patient sources both alcohol as well as marijuana. Related Data Home Medications Medication Instructions Recorded Confirmed insulin lispro 100 unit/mL 50 unit SUBCUT DAILY 11/06/20 11/06/20 subcutaneous pen (Humalog KwikPen (U-100) Insulin) Previous Rx's Medication Instructions Recorded metoclopramide HCl 10 mg tablet 10 mg PO Q6H PRN #15 tab 10/07/20 (Reglan) ondansetron 4 mg disintegrating 4 mg PO Q8H PRN #20 tab 02/06/21 tablet ondansetron HCl 4 mg tablet 4 mg PO Q8H PRN #10 tab 03/25/21 (Zofran) lorazepam 1 mg tablet (Ativan) 1 mg PO BID PRN #20 tab 06/21/21 ondansetron 4 mg disintegrating 4 mg PO Q6-8H PRN #15 tab 06/21/21 tablet ondansetron 4 mg disintegrating 4 mg PO Q8H PRN #10 tab 01/18/22 tablet sucralfate 100 mg/mL oral 10 ml PO BID #420 ml 01/18/22 suspension (Carafate) Allergies Allergy/AdvReac Type Severity Reaction Status Date / Time No Known Allergies Allergy Mild NKA Verified 10/07/20 09:24 Review of Systems Review of Systems: Pertinent positives and negatives as stated in HPI 10 point review of systems is otherwise negative. [facility] Past Medical History Source: nursing notes reviewed Medical History Type 1 diabetes Social History Social History Alcohol intake: current Alcohol intake frequency: a few times a week Alcohol type: beer Substance Use Type: Marijuana Advance Directives: No Advance Directives Information Provided: No Physical Exam Vital Signs: Vital Signs: Last Vital Signs Temp 97.5 F 01/18/22 03:16 Pulse 77 01/18/22 06:34 Resp 18 01/18/22 06:34 BP 100/69 01/18/22 06:34 Pulse Ox 97 01/18/22 06:34 BMI result Body Mass Index 24.3 VITAL SIGNS: Reviewed. GENERAL: Well developed, well nourished, in no acute distress. HEAD: Normocephalic/atraumatic EYES: PERRLA, EOMI EARS: Ext canals without abnormality OROPHARYNX: no oral lesions noted, posterior pharynx clear LUNGS: Normal breath sounds. No adventitious sounds or accessory muscle use. SpO2<100> CARDIOVASCULAR: Regular rate and rhythm without noted murmurs ABDOMEN: Soft, diffuse superficial abdominal discomfort that is not a surgical abdomen, non-distended with bowel sounds, insulin pump noted to the right lower quadrant. SKIN: Inspection of the skin reveals no rashes NEUROLOGIC: Alert and oriented x 4. Strength and sensation to light touch were grossly intact x 4. Course Course Course Narrative: 36-year-old male with history and clinical presentation consistent with cyclical vomiting and no evidence to suggest DKA or HHS. In addition, patient is likely dehydrated. Patient received IV fluid resuscitation, as well as multiple and time medics and medications to soothe his gastritis. Review of all investigations consistent with sickle cool vomiting syndrome, no evidence chest DKA or HHS. In addition, patient has gastritis. Dr Carcamo: Discharge patient when he has tolerated the medications for his gastritis without vomiting. MDM - Nausea/Vomiting/Diarrhea Lab Data Result diagrams: 01/18/22 03:13 01/18/22 03:13 Labs: Lab Results 01/18/22 01/18/22 01/18/22 Range/Units 03:13 03:13 03:13 WBC 19.5 H (4.8-10.8) X10*3/uL RBC 4.82 (4.60-5.80) X10*6/uL Hgb 16.5 (14.0-18.0) g/dl Hct 45.6 (42.0-52.0) % MCV 94.6 (80.0-98.0) fL MCH 34.2 H (27.0-33.0) pg MCHC 36.2 H (31.0-36.0) g/dl RDW 11.9 (11.0-16.0) % Plt Count 504 H (160-400) X10*3/uL MPV 9.7 (9.4-12.4) fL Immature Gran % (Auto) 0.7 H (0.0-0.4) % Neut % (Auto) 82.3 H (45-73) % Lymph % (Auto) 9.1 L (20-40) % [place] % (Auto) 7.0 (2-11) % Eos % (Auto) 0.3 (0-4) % Baso % (Auto) 0.6 (0-2) % Lymph # (Auto) 1.8 (1.2-4.9) X10*3/uL [place] # (Auto) 1.4 H (0.1-1.2) X10*3/uL Eos # (Auto) 0.1 (0.0-0.4) X10*3/uL Baso # (Auto) 0.1 (0.0-0.2) X10*3/uL Abs Immat Gran (auto) 0.14 H (0.00-0.03) X10*3/uL Absolute Neuts (auto) 16.1 H (2.0-8.3) x10*3/uL Absolute Nucleated RBC 0.000 (0.0-0.012) X10*3/uL Nucleated RBC % (auto) 0.0 (0.0-0.2) /100WBC Sodium 137 (135-145) mmol/L Potassium 4.2 (3.3-5.1) mmol/L Chloride 104 (96-108) mmol/L Carbon Dioxide 20 L (22-29) mmol/L Anion Gap 17 (12-20) BUN 9 (9-16) mg/dL Creatinine 1.11 (0.5-1.4) mg/dL Estim Creat Clear Calc 95.9 Estimated GFR > 60 POC Glucose (60-115) mg/dL Random Glucose 142 H D (60-115) mg/dL Calcium 10.6 H (8.4-10.2) mg/dL Total Bilirubin 1.0 (0.0-1.0) mg/dL AST 25 (5-37) U/L ALT 13 (0-40) U/L Alkaline Phosphatase 71 D (39-117) U/L Total Protein 8.2 H D (6.5-8.0) g/dL Albumin 4.8 (3.5-5.0) g/dL Lipase 15 (8-78) U/L Acetone, Qual Negative (Negative) COVID-19 (ABI) (Negative) COVID-19 Clin Com Influenza Type A (BURT) Negative (Negative) Influenza Type B (BURT) Negative (Negative) Influenza A & B Note See Note 01/18/22 01/18/22 Range/Units 03:13 05:22 WBC (4.8-10.8) X10*3/uL RBC (4.60-5.80) X10*6/uL Hgb (14.0-18.0) g/dl Hct (42.0-52.0) % MCV (80.0-98.0) fL MCH (27.0-33.0) pg MCHC (31.0-36.0) g/dl RDW (11.0-16.0) % Plt Count (160-400) X10*3/uL MPV (9.4-12.4) fL Immature Gran % (Auto) (0.0-0.4) % Neut % (Auto) (45-73) % Lymph % (Auto) (20-40) % [place] % (Auto) (2-11) % Eos % (Auto) (0-4) % Baso % (Auto) (0-2) % Lymph # (Auto) (1.2-4.9) X10*3/uL [place] # (Auto) (0.1-1.2) X10*3/uL Eos # (Auto) (0.0-0.4) X10*3/uL Baso # (Auto) (0.0-0.2) X10*3/uL Abs Immat Gran (auto) (0.00-0.03) X10*3/uL Absolute Neuts (auto) (2.0-8.3) x10*3/uL Absolute Nucleated RBC (0.0-0.012) X10*3/uL Nucleated RBC % (auto) (0.0-0.2) /100WBC Sodium (135-145) mmol/L Potassium (3.3-5.1) mmol/L Chloride (96-108) mmol/L Carbon Dioxide (22-29) mmol/L Anion Gap (12-20) BUN (9-16) mg/dL Creatinine (0.5-1.4) mg/dL Estim Creat Clear Calc Estimated GFR POC Glucose 127 H (60-115) mg/dL Random Glucose (60-115) mg/dL Calcium (8.4-10.2) mg/dL Total Bilirubin (0.0-1.0) mg/dL AST (5-37) U/L ALT (0-40) U/L Alkaline Phosphatase (39-117) U/L Total Protein (6.5-8.0) g/dL Albumin (3.5-5.0) g/dL Lipase (8-78) U/L Acetone, Qual (Negative) COVID-19 (ABI) Negative (Negative) COVID-19 Clin Com See Note Influenza Type A (BURT) (Negative) Influenza Type B (BURT) (Negative) Influenza A & B Note Discharge Plan Discharge Clinical Impression: Dehydration, Cyclical vomiting, Gastritis Patient Disposition: Still a Patient Instructions: Gastritis (ED), Dehydration (ED), Cyclic Vomiting Syndrome (ED) Additional Instructions: Increase fluid hydration, especially with water. You have been provided with an antinausea medication. Please take the medication to sooth your gastritis as directed. Return to the ER for worsening symptoms. Prescriptions: New ondansetron 4 mg tablet,disintegrating 4 mg PO Q8H PRN (Reason: nausea and vomiting) Qty: 10 0RF sucralfate [Carafate] 100 mg/mL suspension 10 ml PO BID Qty: 420 0RF No Action metoclopramide HCl [Reglan] 10 mg tablet 10 mg PO Q6H PRN (Reason: nausea and vomiting) Qty: 15 0RF ondansetron HCl [Zofran] 4 mg tablet 4 mg PO Q8H PRN (Reason: nausea and vomiting) Qty: 10 0RF ondansetron 4 mg tablet,disintegrating 4 mg PO Q6-8H PRN (Reason: nausea and vomiting) Qty: 15 0RF lorazepam [Ativan] 1 mg tablet 1 mg PO BID PRN (Reason: anxiety) Qty: 20 0RF insulin lispro [Humalog KwikPen Insulin] 100 unit/mL Insulin Pen 50 unit SUBCUT DAILY 0RF ondansetron 4 mg tablet,disintegrating 4 mg PO Q8H PRN (Reason: nausea and vomiting) Qty: 20 0RF
[2022-01-18 06:06] LABS: Lipase 15 U/L (8-78)
[2022-01-18] MEDS: Prochlorperazine Edisylate 10 MG/2 ML VIAL IVPUSH (06:07)
[2022-01-18 06:15] LABS: Acetone, serum QL Negative (Negative)
[2022-01-18 06:34] VITALS: BP 100/69; PULSE 77; RESP 18; O2SAT 97
[2022-01-18] MEDS: Lidocaine HCl Viscous 2 % 15 ML SOLUTION 10 ML MUCOUS MEM (06:53)
[2022-01-18] MEDS: Sucralfate Oral Suspension 1 GM/10 ML ORAL.SUSP PO (06:54)
[2022-01-18] MEDS: Magnesium Hydrox/Alum Hydrox 30 ML ORAL.SUSP PO (06:54)
[2022-01-18 07:56] VITALS: BP 104/68; PULSE 87; RESP 18; O2SAT 100
--- NOTE | 2022-01-18 08:00 | PC.NURSE ---
Pt is a/o. vss. pt provided with DC instructions and verbalized understanding of teachings. pt verbalizes decreased nausea and epigastric abdominal pain. pt stating that he is ready to go home.
== END 2022-01-18 08:02 | disposition home or self-care (01) ==
PROVIDERS: Student in an Organized Health Care Education/Training Program; Emergency Provider Emergency Medicine
DX: R11.15 Cyclical vomiting syndrome unrelated to migraine (principal); K29.70 Gastritis, unspecified, without bleeding; E86.0 Dehydration; E10.9 Type 1 diabetes mellitus without complications; Z20.822 Contact with and (suspected) exposure to COVID-19
CPT/HCPCS: 80053; 82009; 82947; 83690; 85025; 87502; 87635; 96361; 96374; 96375; 99284; J1200; J2060; J2405; J2765

== ENCOUNTER 2024-05-19 13:49 | Emergency (ER) | payer OTHER, SELFPAY ==
--- NOTE | ~2024-05-19 | CT_ITS ---
EXAMINATION: CT CERVICAL SPINE WITHOUT CONTRAST CLINICAL INFORMATION: Mechanical fall on concrete, neck injury and pain COMPARISON: None available. TECHNIQUE: Multiple 3.0 and 0.6 mm axial images were obtained from base of skull to T1 levels without IV contrast enhancement. Sagittal and coronal 2.0 mm bone window images were reconstructed from axial image data. This CT examination was performed using dose optimization techniques as appropriate, variously including the following: *Automated exposure control *Adjustment of mA and/or kV according to patient size (this includes techniques or standardized protocols for targeted exams where dose is matched to indication/reason for exam; i.e. extremities or head) *Use of iterative reconstruction technique DLP: 351.1 mGy-cm FINDINGS: C1/C2: Bony structures are intact with normal alignment. There is no spinal stenosis. C2/C3: Bony structures are intact with normal alignment. There is no spinal stenosis. Bilateral C2/C3 neuroforamina are patent. Bilateral apophyseal joints are intact with normal alignment. C3/C4: Bony structures are intact with normal alignment. There is no spinal stenosis. Bilateral C3/C4 neuroforamina are patent. Bilateral apophyseal joints are intact with normal alignment. C4/C5: Bony structures are intact with normal alignment. There is no spinal stenosis. Bilateral C4/C5 neuroforamina are patent. Bilateral apophyseal joints are intact with normal alignment. C5/C6: Bony structures are intact with normal alignment. There is moderate posterior disc protrusion with focal calcification, resulting in moderate spinal stenosis, AP diameter of the spinal canal reduced to 8.4 mm. Bilateral C5/C6 neuroforamina are markedly stenosed. Bilateral apophyseal joints are intact with normal alignment. C6/C7: Bony structures are intact with normal alignment. There is no spinal stenosis. Bilateral C6/C7 neuroforamina are patent. Bilateral apophyseal joints are intact with normal alignment. C7/T1: Bony structures are intact with normal alignment. There is no spinal stenosis. Bilateral C7/T1 neuroforamina are patent. Bilateral apophyseal joints are intact with normal alignment. CT/CT cervical spine wo IV con IMPRESSION: 1. No evidence of acute fracture or dislocation. 2. Moderate posterior disc protrusion at C5/C6 resulting in moderate spinal stenosis and marked bilateral C5/C6 neuroforaminal stenosis. Fleischner guidelines were followed.
--- NOTE | ~2024-05-19 | CT_ITS ---
EXAMINATION: CT CHEST WITH CONTRAST CLINICAL INFORMATION: Fall from 7 feet. Right-sided chest pain. COMPARISON: None available. TECHNIQUE: Multidetector volumetric CT imaging of the chest was obtained after the administration of 65 mL of Omnipaque 350 intravenous contrast without immediate adverse reactions. Axial MIP volume rendering provided. Sagittal and coronal reformatted images were obtained. This CT examination was performed using dose optimization techniques as appropriate, variously including the following: *Automated exposure control *Adjustment of mA and/or kV according to patient size (this includes techniques or standardized protocols for targeted exams where dose is matched to indication/reason for exam; i.e. extremities or head) *Use of iterative reconstruction technique DLP: 486 mGy-cm FINDINGS: LUNGS: The lungs are clear with no evidence of inflammation or nodules. MEDIASTINUM: Heart is normal in size. No pericardial effusion. No adenopathy. Thyroid gland is normal. Thoracic aorta is normal in caliber. PLEURA: There is no pleural effusion. No pleural mass or thickening. AXILLA: No lymphadenopathy. UPPER ABDOMEN: Unremarkable OSSEOUS STRUCTURES: There is a subacute, healing fracture of the right fifth rib anteriorly at the costochondral junction. No additional fractures. Minimal degenerative disc disease in the thoracic spine. CT/CT chest w IV con IMPRESSION: Subacute, healing fracture of the right fifth rib anteriorly at the costochondral junction. No additional fractures. No acute pulmonary findings. Fleischner guidelines were followed.
--- NOTE | ~2024-05-19 | CT_ITS ---
EXAMINATION: CT HEAD WITHOUT CONTRAST CLINICAL INFORMATION: Mechanical fall on concrete Blunt head trauma without loss of consciousness, significant head injury and posttraumatic headache. COMPARISON: None available. TECHNIQUE: Contiguous axial imaging was performed from the skull base to vertex without intravenous administration of contrast. This CT examination was performed using dose optimization techniques as appropriate, variously including the following: *Automated exposure control *Adjustment of mA and/or kV according to patient size (this includes techniques or standardized protocols for targeted exams where dose is matched to indication/reason for exam; i.e. extremities or head) *Use of iterative reconstruction technique DLP: 702 mGy-cm FINDINGS: Ventricles, sulci and cisterns are normal. There is no midline shift, no abnormal intra- or extra- axial fluid accumulation. Downs and white matter differentiation is normal. Bone window images show no evidence of skull fracture. Bilateral ethmoid sinuses show moderate mucosal thickening. CT/CT head/brain wo IV con IMPRESSION: 1. No intracranial hemorrhage or other acute intracranial pathology. 2. Bilateral ethmoid sinus disease.
--- NOTE | ~2024-05-19 | XR_ITS ---
EXAMINATION: XR RIBS, RIGHT CLINICAL INFORMATION: Fell down on concrete, chest and rib injury and pain COMPARISON: Chest x-ray on 08/21/2018 TECHNIQUE: 3 views of the right ribs, PA chest x-ray were obtained. FINDINGS: PA chest x-ray, frontal and oblique x-rays of Right ribs show normal cardiac size and pulmonary vascularity. Lungs are clear. No pneumothorax is seen. The visualized Right ribs are intact without focal lesion. XR/XR ribs RT min 3V w CXR1V IMPRESSION: 1. Normal chest x-ray. No pneumothorax is found. Interval resolution of the medial left lower lung infiltrates. 2. No evidence of Right ribs fracture.
[2024-05-19 14:12] VITALS: BP 122/82; PULSE 71; RESP 18; TEMP 36.5; O2SAT 99; BMI 25.7
--- NOTE | 2024-05-19 14:14 | ED.FALL ---
HPI - Fall General Chief Complaint: Fall Stated Complaint: Fall Time Seen by Provider: 05/19/24 16:52 Source: patient and RN notes reviewed Mode of arrival: ambulatory Limitations: no limitations History of Present Illness ED Provider: Ingrid Villasenor PA-C HPI Narrative: This is a 38-year-old male, with a history of type 1 diabetes, who presents emergency department with complaints of right-sided rib pain status post falling 6-7 feet off of a trailer this afternoon. Patient states that he was on the top of a trailer trying to close with a hitch and suddenly fell off of the trailer onto his right side. He states that he hit the right side of his face on the cement. He denies any loss of consciousness. He states that he has had a mild headache, and right-sided body pain. Patient states that the incident occurred at approximately 12:30 p.m. this afternoon. He denies any blurred vision, lightheadedness, abdominal pain, nausea, vomiting or diarrhea. Denies taking any medications prior to his arrival. Pain in his right rib worsens with deep inspiration. He denies any shortness for breath. No other complaints or concerns at this time. MD complaint: fall Onset (ago): hour(s) Fall from: from height (distance) (7 feet) Fall witnessed: yes, by bystander Place fall occurred: work Loss of consciousness: none Prolonged down time: no Symptoms prior to fall: none Context: tripped/slipped Location of injury: chest Severity: moderate Quality: sharp Associated symptoms (after fall): denies Related Data Home Medications ?Medication ?Instructions ?Recorded ?Confirmed insulin lispro 100 unit/mL 50 unit subcut DAILY 11/06/20 11/06/20 subcutaneous pen (Humalog KwikPen (U-100) Insulin) Previous Rx's ?Medication ?Instructions ?Recorded metoclopramide HCl 10 mg tablet 10 mg PO Q6H PRN nausea and 10/07/20 (Reglan) vomiting #15 tabs ondansetron 4 mg disintegrating 4 mg PO Q8H PRN nausea and 02/06/21 tablet vomiting #20 tabs ondansetron HCl 4 mg tablet 4 mg PO Q8H PRN nausea and 03/25/21 (Zofran) vomiting #10 tabs lorazepam 1 mg tablet (Ativan) 1 mg PO BID PRN anxiety #20 tabs 09/18/21 ondansetron 4 mg disintegrating 4 mg PO Q6-8H PRN nausea and 06/21/21 tablet vomiting #15 tabs ondansetron 4 mg disintegrating 4 mg PO Q8H PRN nausea and 01/18/22 tablet vomiting #10 tabs sucralfate 100 mg/mL oral 10 ml PO BID #420 mL 01/18/22 suspension (Carafate) lidocaine 5 % topical patch 1 patch topical DAILY PRN pain #15 05/19/24 ea morphine 15 mg immediate release 15 mg PO Q6H PRN pain 5 days #10 05/19/24 tablet tabs naproxen 500 mg tablet 500 mg PO BID PRN pain #14 tabs 05/19/24 Allergies Allergy/AdvReac Type Severity Reaction Status Date / Time No Known Allergies Allergy Mild NKA Verified 05/19/24 14:16 Review of Systems Review of Systems: Yes all other systems are reviewed and are negative Constitutional: Constitutional: Reports as per [facility] Past Medical History Attestation statement: The following information was validated with the patient. Medical History Type 1 diabetes Social History Social History Alcohol intake: current Alcohol intake frequency: a few times a week Alcohol type: beer Smoked in Last 30 Days: No Use of substances other than those prescribed or required for medical reasons: Yes Substance Use Type: Marijuana Substance Use Frequency: Daily Advance Directives: No Advance Directives Information Provided: No Do you have a plan to hurt others: No Plan Physical Exam Vital Signs: Vital Signs: Last Vital Signs Temp 98.3 F 05/19/24 23:17 Pulse 72 05/19/24 23:17 Resp 17 05/19/24 23:17 BP 118/80 05/19/24 23:17 Pulse Ox 99 05/19/24 23:17 O2 Del Method Room Air 05/19/24 23:17 BMI result Body Mass Index 25.7 Const: General: cooperative, comfortable and no acute distress Orientation/consciousness: patient oriented x3 Limitations: no limitations HEENT: Head: Yes normal to inspection, Yes normocephalic, Yes atraumatic, No Carreno's sign, No palpable skull fracture, No raccoon eyes and No scalp tenderness Ears: hearing grossly normal bilaterally and TM's normal bilaterally General nose exam: Normal external nose present Face and sinus: Yes normal facial exam Mouth: Normal oral and palatal mucosa present, oropharynx normal and moist mucous membranes Throat: Yes posterior oropharynx normal Eyes: General: appearance normal, both eyes and all related structures Eyelids: Yes eyelids normal Conjunctivae: conjunctivae normal Sclerae: sclerae normal Pupils: Equal, round and reactive pupils present EOM: EOMs intact bilaterally Neck: Other: No tenderness palpation along the midline spine. Neck: Yes normal visual inspection, Yes full ROM and Yes no lymphadenopathy Lymphatic: no lymphadenopathy noted Chest: Other: Tenderness palpation along the right lateral ribs, no flail chest, no bony step-off or deformity. No crepitus, no overlying ecchymosis. Chest palpation & inspection: normal inspection of the chest Resp: Effort & Inspection: normal respiratory effort and able to speak in complete sentences Auscultation: clear to auscultation bilaterally, no crackles, no rales, no rhonchi and no wheezes Cardio: Rate: regular rate Rhythm: regular rhythm Heart sounds: S1 normal heart sound present and S2 normal heart sound present GI: Other: Abdomen is soft, nontender, nondistended Inspection: Yes normal to inspection Skin: General skin exam: no rashes or lesions noted Trauma: no lacerations or abrasions Wounds: no wounds Neuro: General: patient oriented x3 and moves all extremities Cranial nerves: Yes CN's II-XII intact bilaterally and Yes Equal, round and reactive pupils present Cognition (Neuro): normal cognition Gait exam (Neuro): Normal gait present Motor exam (neuro): 5/5 motor strength present throughout and Pronator motor function not present Extrem: General: Yes normal to inspection Right upper extremity: normal to inspection Left upper extremity: normal to inspection Right lower extremity: normal to inspection Left lower extremity: normal to inspection Course Course Course Narrative: This is a Rapid Medical Exam performed in triage by Lilia Lozoya PA-C. Full HPI, ROS and PE to be performed by primary ED provider. 38-year-old male no significant past medical history presenting to the ED complaining of head injury and right-sided rib pain s/p fall off of 6-7 foot trailer onto concrete 1.5 hours [employer]. Denies LOC or taking anticoagulation. Denies abdominal pain. PE: Appears uncomfortable, right-sided reproducible rib tenderness. No flail chest or ecchymosis. + hematoma noted to right forehead. No midline cervical tenderness Plan: Head/C-spine CT rib x-ray ordered Reevaluation(s) Reevaluation #1: Received critical glucose of 41. Rechecked with point of care, this is 50. Patient alert and oriented. Will provide with food. He states he has not eaten anything today. Time: 18:37 Reevaluation #2: CT still pending, sign-out given to my colleague, Darell Kim PA-C pending CT results and repeat POC. Time: 19:17 Reevaluation #3: Repeat point of care improved. CT head no intracranial hemorrhage or acute intracranial pathology. Bilateral ethmoid sinus disease. CT cervical spine no evidence of fracture dislocation moderate posterior disc protrusion C5-C6 and spinal stenosis resulting. CT of chest with subacute healing fracture of the right 5th rib anteriorly at the costochondral junction. Will give him incentive spirometer. At this time patient to be discharged home. Educated patient on diagnosis and treatment plan, answered all question, patient verbalizes understanding. At this time patient will be discharged home, advised to return with new or worsening symptoms. Educated on worrisome signs and symptoms and when to return. At this time I feel comfortable discharge home. Time: 23:23 Medications Administered Discontinued Medications Generic Name Dose Route Start Last Admin Trade Name Kristopherq PRN Reason Stop Dose Admin Iohexol 65 ml 05/19/24 19:43 05/19/24 19:43 Iohexol 350 Mg/Ml 100 Ml Infus..Btl IV 05/19/24 19:44 65 ml ONCE ONE Administration Morphine Sulfate 4 mg 05/19/24 18:05 05/19/24 18:24 Morphine Sulfate 4 Mg/Ml Cartridge IVPUSH 05/19/24 18:06 4 mg ONCE ONE Administration Protocol Medical Decision Making Medical Decision Making MDM Narrative: This is a 38-year-old male who presents emergency department with complaints of right-sided rib pain status post falling off a trailer this afternoon while at work. The trailer was approximately 7 ft from the ground. He landed onto the concrete floor. He hit the right side of his head on pavement. Denies loss consciousness. On arrival, he is alert and oriented x4, GCS 15. No neurologic deficits on examination. He does have tenderness palpation along the right anterior and lateral posterior ribs, no bony step-off or deformity. Lungs are clear to auscultation bilaterally. Prior to my assessment, CT head and C-spine CT scan were obtained, rib x-rays were also obtained. There were no rib fractures seen on examination. CT head does not show any acute abnormalities. He does have a moderate posterior protrusion at C5-C6 resulting in moderate spinal stenosis and marked bilateral C5-C6 neuro foraminal stenosis. He has no midline spine tenderness. Given significant pain on the right lateral ribs with trauma, will obtain CT to rule out fracture or any acute thoracic injury. Patient medicated with morphine 4 mg for pain management. Differential Diagnosis Differential Diagnoses: The differential diagnosis associated with the presentation includes ICH, SDH, cervical spine fracture, rib fracture, pneumothorax Admission/Observation Consideration of admission/observation: Escalation of care including admission/observation considered Lab Data MDM Lab Attestation statement: I reviewed the patient's lab results. Slight leukocytosis at 11.4, likely reactive, chemistry revealing hypoglycemia 41 this improved after administering juice and food. 05/19/24 17:59 05/19/24 17:59 Labs: Lab Results 05/19/24 05/19/24 05/19/24 Range/Units 17:59 18:36 19:27 WBC 11.4 H (4.8-10.8) X10*3/uL RBC 4.43 L (4.60-5.80) X10*6/uL Hgb 14.9 (14.0-18.0) g/dl Hct 42.7 (42.0-52.0) % MCV 96.4 (80.0-98.0) fL MCH 33.6 H (27.0-33.0) pg MCHC 34.9 (31.0-36.0) g/dl RDW 12.2 (11.0-16.0) % Plt Count 353 D (160-400) X10*3/uL MPV 9.7 (9.4-12.4) fL Immature Gran % (Auto) 0.4 (0.0-0.4) % Neut % (Auto) 69.0 (45-73) % Lymph % (Auto) 18.1 L (20-40) % [place] % (Auto) 10.7 (2-11) % Eos % (Auto) 1.3 (0-4) % Baso % (Auto) 0.5 (0-2) % Lymph # (Auto) 2.1 (1.2-4.9) X10*3/uL [place] # (Auto) 1.2 (0.1-1.2) X10*3/uL Eos # (Auto) 0.2 (0.0-0.4) X10*3/uL Baso # (Auto) 0.1 (0.0-0.2) X10*3/uL Abs Immat Gran (auto) 0.04 H (0.00-0.03) X10*3/uL Absolute Neuts (auto) 7.8 (2.0-8.3) x10*3/uL Absolute Nucleated RBC 0.000 (0.0-0.012) X10*3/uL Nucleated RBC % (auto) 0.0 (0.0-0.2) /100WBC Sodium 141 (135-145) mmol/L Potassium 4.2 (3.3-5.1) mmol/L Chloride 107 (96-108) mmol/L Carbon Dioxide 27 (22-29) mmol/L Anion Gap 11 L (12-20) BUN 6 L (9-16) mg/dL Creatinine 0.95 (0.5-1.4) mg/dL Estim Creat Clear Calc 99.5 Estimated GFR > 60 POC Glucose 50 L* 67 (60-115) mg/dL Random Glucose 41 L* (60-115) mg/dL Calcium 9.6 D (8.4-10.2) mg/dL Total Bilirubin 0.6 (0.0-1.0) mg/dL AST 28 (5-37) U/L ALT 11 (0-40) U/L Alkaline Phosphatase 61 (39-117) U/L Total Protein 7.0 (6.5-8.0) g/dL Albumin 4.4 (3.5-5.0) g/dL Radiology Impression Discussion of test interpretation with radiology: I have reviewed the radiologist's reading. Radiologist Impression: CT/CT cervical spine wo IV con IMPRESSION: 1. No evidence of acute fracture or dislocation. 2. Moderate posterior disc protrusion at C5/C6 resulting in moderate spinal stenosis and marked bilateral C5/C6 neuroforaminal stenosis. Fleischner guidelines were followed. Dictated By: Stephania Conway CT/CT head/brain wo IV con IMPRESSION: 1. No intracranial hemorrhage or other acute intracranial pathology. 2. Bilateral ethmoid sinus disease. Dictated By: Stephania Conway XR/XR ribs RT min 3V w CXR1V IMPRESSION: 1. Normal chest x-ray. No pneumothorax is found. Interval resolution of the medial left lower lung infiltrates. 2. No evidence of Right ribs fracture. Dictated By: Stephania Conway Independent Historian Clinical information obtained from an independent historian. History obtained from or confirmed by: Parent Discharge Plan Discharge Clinical Impression: Protrusion of cervical intervertebral disc, Fall, Fracture of rib Patient Disposition: Home, Self-Care Instructions: Cervical Disc Herniation (ED), Neck Pain (ED), Rib Fracture (ED) Additional Instructions: You were seen in the emergency department after a fall today. Your CT of your head does not show any injury. You have a disc protrusion at C5-C6, follow-up with the capital equipment specialist, call to make an appointment. If any new or worsening symptoms occur including but not limited to severe headache, dizziness, changes in vision, chest pain, shortness of breath, please return for re-evaluation. A narcotic has been sent to your pharmacy please take this as prescribed. Do not take more than the prescribed dose. Narcotic medications can cause addiction. Please do not mix them with alcohol. Do not take them while driving or operating machinery. Do not take them with any other narcotics. Do not share them with friends or family. They can cause constipation. Take them only for severe pain. CT/CT cervical spine wo IV con IMPRESSION: 1. No evidence of acute fracture or dislocation. 2. Moderate posterior disc protrusion at C5/C6 resulting in moderate spinal stenosis and marked bilateral C5/C6 neuroforaminal stenosis. Fleischner guidelines were followed. CT/CT head/brain wo IV con IMPRESSION: 1. No intracranial hemorrhage or other acute intracranial pathology. 2. Bilateral ethmoid sinus disease. CT/CT chest w IV con IMPRESSION: Subacute, healing fracture of the right fifth rib anteriorly at the costochondral junction. No additional fractures. No acute pulmonary findings. Fleischner guidelines were followed. Prescriptions: New lidocaine 5 % adhesive patch,medicated 1 patch topical DAILY PRN (Reason: pain) Qty: 15 0RF Rx Instructions: leave on most painful area for up to 12 hrs morphine 15 mg tablet 15 mg PO Q6H PRN (Reason: pain) 5 Days Qty: 10 0RF Rx Instructions: Partial Fill upon patient request. naproxen 500 mg tablet 500 mg PO BID PRN (Reason: pain) Qty: 14 0RF Rx Instructions: Take with food No Action metoclopramide HCl [Reglan] 10 mg tablet 10 mg PO Q6H PRN (Reason: nausea and vomiting) Qty: 15 0RF ondansetron HCl [Zofran] 4 mg tablet 4 mg PO Q8H PRN (Reason: nausea and vomiting) Qty: 10 0RF ondansetron 4 mg tablet,disintegrating 4 mg PO Q6-8H PRN (Reason: nausea and vomiting) Qty: 15 0RF lorazepam [Ativan] 1 mg tablet 1 mg PO BID PRN (Reason: anxiety) Qty: 20 0RF insulin lispro [Humalog KwikPen Insulin] 100 unit/mL Insulin Pen 50 unit SUBCUT DAILY ondansetron 4 mg tablet,disintegrating 4 mg PO Q8H PRN (Reason: nausea and vomiting) Qty: 20 0RF ondansetron 4 mg tablet,disintegrating 4 mg PO Q8H PRN (Reason: nausea and vomiting) Qty: 10 0RF sucralfate [Carafate] 100 mg/mL suspension 10 ml PO BID Qty: 420 0RF Referrals: Physician,None [Primary Care Provider] - 2 days Print Language: Georgian
[2024-05-19 16:47] VITALS: BP 118/74; PULSE 96; RESP 20; TEMP 36.4; O2SAT 96
[2024-05-19 18:05] LABS: MANUAL DIFF FLAG NO
[2024-05-19 18:07] LABS: Basophils Absolute Auto 0.1 X10*3/uL (0.0-0.2); Basophils Percent Auto 0.5 % (0-2); Eosinophils Absolute Auto 0.2 X10*3/uL (0.0-0.4); Eosinophils Percent Auto 1.3 % (0-4); Hematocrit 42.7 % (42.0-52.0); Hemoglobin 14.9 g/dl (14.0-18.0); Imm Gran Abs Auto 0.04 X10*3/uL (0.00-0.03); Imm Gran Pct Auto 0.4 % (0.0-0.4); Lymphocytes Absolute Auto 2.1 X10*3/uL (1.2-4.9); Lymphocytes Percent Auto 18.1 % (20-40); Mean Corpuscular HGB Conc 34.9 g/dl (31.0-36.0); Mean Corpuscular Hemoglobin 33.6 pg (27.0-33.0); Mean Corpuscular Volume 96.4 fL (80.0-98.0); Mean Platelet Volume 9.7 fL (9.4-12.4); Monocytes Absolute Auto 1.2 X10*3/uL (0.1-1.2); Monocytes Percent Auto 10.7 % (2-11); Neutrophils Absolute Auto 7.8 x10*3/uL (2.0-8.3); Platelet Count 353 X10*3/uL (160-400); Red Blood Count 4.43 X10*6/uL (4.60-5.80); Red Cell Distribution Width 12.2 % (11.0-16.0); White Blood Count 11.4 X10*3/uL (4.8-10.8)
[2024-05-19 18:17] VITALS: BP 123/76; PULSE 69; RESP 18; TEMP 36.6; O2SAT 98
[2024-05-19 18:24] VITALS: RESP 18
[2024-05-19] MEDS: Morphine Sulfate 4 MG/ML CARTRIDGE IVPUSH (18:24)
[2024-05-19 18:35] LABS: Alanine Aminotransferase 11 U/L (0-40); Albumin Level 4.4 g/dL (3.5-5.0); Alkaline Phosphatase 61 U/L (39-117); Anion Gap 11 (12-20); Aspartate Amino Transferase 28 U/L (5-37); Bilirubin Total 0.6 mg/dL (0.0-1.0); Blood Urea Nitrogen 6 mg/dL (9-16); Calcium 9.6 mg/dL (8.4-10.2); Carbon Dioxide 27 mmol/L (22-29); Chloride 107 mmol/L (96-108); Creatinine Clr Calc Pharmacy 99.5; Estimated Glomerular Filt Rate > 60; Glucose Random 41 mg/dL (60-115); Potassium 4.2 mmol/L (3.3-5.1); Sodium 141 mmol/L (135-145)
[2024-05-19 18:41] LABS: Glucose, Whole Blood 50 mg/dL (60-115)
[2024-05-19 19:32] LABS: Glucose, Whole Blood 67 mg/dL (60-115)
[2024-05-19] MEDS: iohexoL 350 MG/ML 100 ML INFUS..BTL 65 ML IV (19:43)
[2024-05-19 20:10] VITALS: BP 137/95; PULSE 68; RESP 18; TEMP 36.4; O2SAT 99
--- NOTE | 2024-05-19 22:08 | MHC.EDTECH ---
at this time the pt requested for VS to be skipped for him to rest
[2024-05-19 23:17] VITALS: BP 118/80; PULSE 72; RESP 17; TEMP 36.8; O2SAT 99
[2024-05-20] MEDS: Morphine Sulfate Immed Release 15 MG TABLET PO (00:06)
[2024-05-20 00:11] VITALS: BP 118/80; PULSE 72; RESP 17; TEMP 36.8; O2SAT 99
== END 2024-05-20 00:11 | disposition home or self-care (01) ==
PROVIDERS: Physician Assistant Medical; Emergency Provider Emergency Medicine
DX: M50.222 Other cervical disc displacement at C5-C6 level (principal); M48.02 Spinal stenosis, cervical region; S22.31XA Fracture of one rib, right side, initial encounter for closed fracture; W17.89XA Other fall from one level to another, initial encounter; R51.9 Headache, unspecified; E10.8 Type 1 diabetes mellitus with unspecified complications; Y93.89 Activity, other specified; Y92.028 Other place in mobile home as the place of occurrence of the external cause; Y99.9 Unspecified external cause status
CPT/HCPCS: 36415; 70450; 71101; 71260; 72125; 80053; 82947; 85025; 94010; 96374; 99284; 99285; J2270; Q9967

== ENCOUNTER 2025-06-27 10:44 | Emergency (ER) | payer OTHER, SELFPAY ==
[2025-06-27 11:07] VITALS: BP 142/77; PULSE 67; RESP 18; TEMP 36.4; O2SAT 100; BMI 60.3
[2025-06-27 11:27] LABS: Glucose, Whole Blood 146 mg/dL (60-115)
--- NOTE | 2025-06-27 11:39 | ED.NAVMDI ---
HPI - Nausea/Vomiting/Diarrhea General Chief complaint: Nausea/Vomiting/Diarrhea Stated complaint: severe vomitting Time Seen by Provider: 06/27/25 11:39 Source: patient, family and RN notes reviewed Mode of arrival: ambulatory Limitations: no limitations History of Present Illness ED Provider: Ingrid Linda PA-C HPI Narrative: This is a 40-year-old male, with a past medical history of type 1 diabetes with insulin pump, cannabis use, and cyclical vomiting syndrome who presents emergency department with concerns of acute onset of nausea and vomiting which started at 2:30 a.m. this morning. Patient reports that he has a history of cyclical vomiting in his symptoms feel similar. Denies any recent illness, or consumption of contaminated food. Denies any fevers, chills, chest pain, shortness for breath, abdominal pain, diarrhea or constipation. He reports that he has vomited many times this morning. No bloody vomit. No bloody or black stool. No urinary symptoms. No other complaints or concerns at this time. MD elicited complaint: nausea and vomiting Pertinent past history: cyclical vomiting Onset (ago): hour(s) Associated nausea: Yes Associated abdominal pain: No Location of pain: none Quality: aching Exacerbating factors: none Relieving factors: none Related Data Home Medications ?Medication ?Instructions ?Recorded ?Confirmed insulin lispro 100 unit/mL 50 unit subcut DAILY 11/06/20 11/06/20 subcutaneous pen (Humalog KwikPen (U-100) Insulin) Previous Rx's ?Medication ?Instructions ?Recorded metoclopramide HCl 10 mg tablet 10 mg PO Q6H PRN nausea and 10/07/20 (Reglan) vomiting #15 tabs ondansetron 4 mg disintegrating 4 mg PO Q8H PRN nausea and 02/06/21 tablet vomiting #20 tabs ondansetron HCl 4 mg tablet 4 mg PO Q8H PRN nausea and 03/25/21 (Zofran) vomiting #10 tabs lorazepam 1 mg tablet (Ativan) 1 mg PO BID PRN anxiety #20 tabs 06/21/21 ondansetron 4 mg disintegrating 4 mg PO Q6-8H PRN nausea and 06/21/21 tablet vomiting #15 tabs ondansetron 4 mg disintegrating 4 mg PO Q8H PRN nausea and 01/18/22 tablet vomiting #10 tabs sucralfate 100 mg/mL oral 10 ml PO BID #420 mL 01/18/22 suspension (Carafate) lidocaine 5 % topical patch 1 patch topical DAILY PRN pain #15 05/19/24 ea morphine 15 mg immediate release 15 mg PO Q6H PRN pain 5 days #10 05/19/24 tablet tabs naproxen 500 mg tablet 500 mg PO BID PRN pain #14 tabs 05/19/24 ondansetron 4 mg disintegrating 4 mg PO Q6H PRN nausea and 06/27/25 tablet vomiting #10 tabs Allergies Allergy/AdvReac Type Severity Reaction Status Date / Time No Known Allergies Allergy Mild NKA Verified 06/27/25 11:30 Review of Systems Review of Systems: Constitutional : No Fever, No Chills ENT/Mouth : No sore throat, No Rhinorrhea Eyes: No Eye Pain, No Swelling, No Redness Cardiovascular : No Chest Pain, No SOB Respiratory : No Cough, No Sputum Gastrointestinal : + Nausea, + Vomiting, No Diarrhea, No abdominal Pain Genitourinary : No Dysuria, No Hematuria Musculoskeletal : No joint pain, No Myalgias, No Joint Swelling Skin : No Skin Lesions Neuro : No Weakness, No Numbness, No Headache All other systems reviewed and are negative Yes all other systems are reviewed and are negative Constitutional: Constitutional: Reports as per HPI Gastrointestinal: Gastrointestinal: Reports nausea PMFSH Past Medical History Medical History Type 1 diabetes Social History Social History Alcohol intake: current Alcohol intake frequency: a few times a week Alcohol type: beer Smoked in Last 30 Days: No Substance Use Type: Marijuana Substance Use Frequency: Occasionally Advance Directives: No Advance Directives Information Provided: Yes Physical Exam Vital Signs: Vital Signs: Last Vital Signs Temp 98.6 F 06/27/25 19:09 Pulse 62 06/27/25 19:09 Resp 19 06/27/25 19:09 BP 145/82 H 06/27/25 19:09 Pulse Ox 97 06/27/25 19:09 O2 Del Method Room Air 06/27/25 19:09 BMI result Body Mass Index 60.3 Const: General: cooperative, comfortable and no acute distress Orientation/consciousness: patient oriented x3 Limitations: no limitations HEENT: Head: Yes normal to inspection, Yes normocephalic and Yes atraumatic Ears: hearing grossly normal bilaterally General nose exam: Normal external nose present Face and sinus: Yes normal facial exam Mouth: Normal oral and palatal mucosa present, oropharynx normal and moist mucous membranes Throat: Yes posterior oropharynx normal Eyes: General: appearance normal, both eyes and all related structures Eyelids: Yes eyelids normal Conjunctivae: conjunctivae normal Sclerae: sclerae normal Pupils: Equal, round and reactive pupils present EOM: EOMs intact bilaterally Neck: Neck: Yes normal visual inspection, Yes full ROM and Yes no lymphadenopathy Lymphatic: no lymphadenopathy noted Chest: Chest palpation & inspection: normal inspection of the chest Resp: Effort & Inspection: normal respiratory effort and able to speak in complete sentences Auscultation: clear to auscultation bilaterally, no crackles, no rales, no rhonchi and no wheezes Cardio: Rate: regular rate Rhythm: regular rhythm Heart sounds: S1 normal heart sound present and S2 normal heart sound present GI: Other: Abdomen is soft, nontender, nondistended Inspection: Yes normal to inspection Skin: General skin exam: no rashes or lesions noted Trauma: no lacerations or abrasions Wounds: no wounds Neuro: General: patient oriented x3 and moves all extremities Cranial nerves: Yes Equal, round and reactive pupils present Extrem: General: Yes normal to inspection Right upper extremity: normal to inspection Left upper extremity: normal to inspection Right lower extremity: normal to inspection Left lower extremity: normal to inspection Medications Administered Discontinued Medications Generic Name Dose Route Start Last Admin Trade Name Kristopherq PRN Reason Stop Dose Admin Diphenhydramine HCl 25 mg 06/27/25 15:03 06/27/25 15:10 Diphenhydramine Hcl 50 Mg/Ml Vial IVPUSH 06/27/25 15:04 25 mg ONCE ONE Administration Droperidol 1.25 mg 06/27/25 11:46 06/27/25 11:51 Droperidol 5 Mg/2 Ml Vial IVPUSH 06/27/25 11:47 1.25 mg ONCE ONE Administration Droperidol 1.25 mg 06/27/25 12:22 06/27/25 12:43 Droperidol 5 Mg/2 Ml Vial IVPUSH 06/27/25 12:23 1.25 mg ONCE ONE Administration Sodium Chloride 1,000 mls @ 999 mls/hr 06/27/25 11:45 06/27/25 14:49 Ns IV 06/27/25 12:45 Infused .Q1H1M ROS Infusion Lactated Ringer's 1,000 mls @ 999 mls/hr 06/27/25 14:04 06/27/25 19:09 Lr IV 06/27/25 15:04 Infused .Q1H1M ONE Infusion Metoclopramide HCl 10 mg 06/27/25 15:03 06/27/25 15:10 Metoclopramide Hcl 10 Mg/2 Ml Vial IVPUSH 06/27/25 15:04 10 mg ONCE ONE Administration Medical Decision Making Medical Decision Making [facility] Narrative: This is a 40-year-old male, with a history of type 1 diabetes, who presents emergency department with concerns of acute onset nausea and vomiting which started this morning. On arrival, patient actively retching, blood pressure elevated at 142/77, all other vital signs within normal limits. He has no abdominal pain. He states that he has a history of cyclical vomiting and states that his symptoms are similar. He does endorse marijuana use. No alcohol use. No sick contacts with similar symptoms. Given presentation consistent with cyclical vomiting syndrome, will treat with droperidol. Discussed case with my attending physician. Point of care 146. We will also fluid resuscitate IV normal saline. 12:22 PM 06/27/2025 (Ingrid Linda PA-C): Patient actively vomiting again, discussed with my attending physician, advised to order 2nd dose of droperidol. Patient with leukocytosis at 19.3, this is likely reactive, there is no source of infection chemistry with no significant electrolyte derangement. Lipase low at 6. Beta hydroxybutyrate at 0.27, VBG reviewed, patient compensating. EKG revealing normal sinus rhythm with sinus arrhythmia at a ventricular rate of 69 beats per minute, QT QTC 410/439, no STEMI. 1:11 PM 06/27/2025 (Ingrid Linda PA-C): Patient re-evaluated, no longer vomiting. We will continue to monitor. 3:00 PM 06/27/2025 (Ingrid Linda PA-C): Attempted to p.o. challenge patient, patient is actively vomiting again. Given that patient has a type 1 diabetic, and is actively vomiting again, his inability to tolerate p.o., he should be admitted for monitoring due to cyclical vomiting with failed p.o. challenge. Also ordered Reglan and Benadryl. I also discussed with my attending physician, recommending admission given that he has a type 1 diabetic. 3:09 PM 06/27/2025 (Ingrid Linda PA-C): Discussed with patient, he really does not want to stay. Discussed with patient that we can try Reglan and Benadryl and p.o. challenge again however I strongly urged the patient to be admitted. 4:31 PM 06/27/2025 (Ingrid Linda PA-C): Patient re-evaluated, he started drinking fluids about a 1/2 hour ago, no return of vomiting, continues to be nauseous. Strongly urged patient to be admitted to the hospital, he still has about half a L of fluids to receive.. He will continue to think about the admission. Continue to touch base with my attending physician, Dr. Lee. He still recommends admission which I also agree with however patient would like to be discharged home still. Will continue to monitor pending completion of IV fluids. Mother states that she currently lives with patient and we will be home to observe patient. 5:35 PM 06/27/2025 (Ingrdi Linda PA-C): Patient is still resting, not alert enough to be discharged home. Given signed out to my colleague, Dominick Naik pending re-assessment and d/c home. Patient wishes to stay, patient will be admitted however if not he will be signing against medical advice. Differential Diagnosis Differential Diagnoses: The differential diagnosis associated with the presentation includes Electrolyte derangement, cyclical vomiting syndrome, DKA, dehydration, gastroenteritis, gastritis Admission/Observation Consideration of admission/observation: Escalation of care including admission/observation considered Lab Data MDM Lab Attestation statement: I reviewed the patient's lab results. See above 06/27/25 11:35 06/27/25 11:35 Labs: Lab Results 06/27/25 06/27/25 06/27/25 Range/Units 11:16 11:35 11:42 WBC 19.3 H (4.8-10.8) X10*3/uL RBC 4.65 (4.60-5.80) X10*6/uL Hgb 16.4 (14.0-18.0) g/dl Hct 44.1 (42.0-52.0) % MCV 94.8 (80.0-98.0) fL MCH 35.3 H (27.0-33.0) pg MCHC 37.2 H (31.0-36.0) g/dl RDW 12.1 (11.0-16.0) % Plt Count 423 H (160-400) X10*3/uL MPV 10.2 (9.4-12.4) fL Immature Gran % (Auto) 0.6 H (0.0-0.4) % Neut % (Auto) 89.1 H (45-73) % Lymph % (Auto) 4.9 L (20-40) % Valley % (Auto) 4.9 (2-11) % Eos % (Auto) 0.1 (0-4) % Baso % (Auto) 0.4 (0-2) % Lymph # (Auto) 0.9 L (1.2-4.9) X10*3/uL Valley # (Auto) 1.0 (0.1-1.2) X10*3/uL Eos # (Auto) 0.0 (0.0-0.4) X10*3/uL Baso # (Auto) 0.1 (0.0-0.2) X10*3/uL Abs Immat Gran (auto) 0.12 H (0.00-0.03) X10*3/uL Absolute Neuts (auto) 17.2 H (2.0-8.3) x10*3/uL Absolute Nucleated RBC 0.000 (0.0-0.012) X10*3/uL Nucleated RBC % (auto) 0.0 (0.0-0.2) /100WBC VBG pH 7.51 H (7.32-7.43) VBG pCO2 29 mmHg VBG pO2 52 mmHg VBG HCO3 24 (22-26) mmol/L VBG O2 Saturation 83.0 % VBG Base Excess 2.6 mmol/L Sodium 142 (135-145) mmol/L Potassium 4.1 (3.3-5.1) mmol/L Chloride 108 (96-108) mmol/L Carbon Dioxide 21 L (22-29) mmol/L Anion Gap 17 (12-20) BUN 11 (9-16) mg/dL Creatinine 0.91 (0.5-1.4) mg/dL Estim Creat Clear Calc 168.7 Estimated GFR > 60 POC Glucose 146 H (60-115) mg/dL Random Glucose 148 H (60-115) mg/dL Calcium 10.0 (8.4-10.2) mg/dL Magnesium 1.8 (1.6-2.6) mg/dL Total Bilirubin 0.9 (0.0-1.0) mg/dL Direct Bilirubin 0.3 (0.0-0.5) mg/dL AST 32 (5-37) U/L ALT 12 (0-40) U/L Alkaline Phosphatase 74 (39-117) U/L C-Reactive Protein < 0.04 (< or = 0.50) mg/dL Total Protein 7.9 (6.5-8.0) g/dL Albumin 4.9 (3.5-5.0) g/dL Lipase 6 L (8-78) U/L Beta-Hydroxybutyrate 0.37 H (0.02-0.27) mmol/L 06/27/25 Range/Units 16:31 WBC (4.8-10.8) X10*3/uL RBC (4.60-5.80) X10*6/uL Hgb (14.0-18.0) g/dl Hct (42.0-52.0) % MCV (80.0-98.0) fL MCH (27.0-33.0) pg MCHC (31.0-36.0) g/dl RDW (11.0-16.0) % Plt Count (160-400) X10*3/uL MPV (9.4-12.4) fL Immature Gran % (Auto) (0.0-0.4) % Neut % (Auto) (45-73) % Lymph % (Auto) (20-40) % Valley % (Auto) (2-11) % Eos % (Auto) (0-4) % Baso % (Auto) (0-2) % Lymph # (Auto) (1.2-4.9) X10*3/uL Valley # (Auto) (0.1-1.2) X10*3/uL Eos # (Auto) (0.0-0.4) X10*3/uL Baso # (Auto) (0.0-0.2) X10*3/uL Abs Immat Gran (auto) (0.00-0.03) X10*3/uL Absolute Neuts (auto) (2.0-8.3) x10*3/uL Absolute Nucleated RBC (0.0-0.012) X10*3/uL Nucleated RBC % (auto) (0.0-0.2) /100WBC VBG pH (7.32-7.43) VBG pCO2 mmHg VBG pO2 mmHg VBG HCO3 (22-26) mmol/L VBG O2 Saturation % VBG Base Excess mmol/L Sodium (135-145) mmol/L Potassium (3.3-5.1) mmol/L Chloride (96-108) mmol/L Carbon Dioxide (22-29) mmol/L Anion Gap (12-20) BUN (9-16) mg/dL Creatinine (0.5-1.4) mg/dL Estim Creat Clear Calc Estimated GFR POC Glucose 149 H (60-115) mg/dL Random Glucose (60-115) mg/dL Calcium (8.4-10.2) mg/dL Magnesium (1.6-2.6) mg/dL Total Bilirubin (0.0-1.0) mg/dL Direct Bilirubin (0.0-0.5) mg/dL AST (5-37) U/L ALT (0-40) U/L Alkaline Phosphatase (39-117) U/L C-Reactive Protein (< or = 0.50) mg/dL Total Protein (6.5-8.0) g/dL Albumin (3.5-5.0) g/dL Lipase (8-78) U/L Beta-Hydroxybutyrate (0.02-0.27) mmol/L Independent Interpretation I performed an independent interpretation of an: EKG Discharge Plan Discharge Clinical Impression: Cyclical vomiting syndrome Patient Disposition: Left Against Medical Advice Instructions: Acute Nausea and Vomiting (ED) Additional Instructions: You were seen in the emergency department due to cyclical vomiting. I strongly urge you to stay here in the hospital as you can become very ill. I stressed the importance of staying as having cyclical vomiting while you are type 1 diabetic can be very serious and can cause serious life-threatening illness including . You recognize these risks and consequences and still want to be discharged home. At this time you are signing against medical advice. Take Zofran as needed for nausea and vomiting. Take this as prescribed. Do not over use this as this also can cause serious life-threatening illness including heart arrhythmias and or . Stick to a bland diet. Follow-up with her primary care physician. Please return with any new or worsening symptoms. Prescriptions: New ondansetron 4 mg tablet,disintegrating 4 mg PO Q6H PRN (Reason: nausea and vomiting) Qty: 10 0RF No Action metoclopramide HCl [Reglan] 10 mg tablet 10 mg PO Q6H PRN (Reason: nausea and vomiting) Qty: 15 0RF ondansetron HCl [Zofran] 4 mg tablet 4 mg PO Q8H PRN (Reason: nausea and vomiting) Qty: 10 0RF ondansetron 4 mg tablet,disintegrating 4 mg PO Q6-8H PRN (Reason: nausea and vomiting) Qty: 15 0RF lorazepam [Ativan] 1 mg tablet 1 mg PO BID PRN (Reason: anxiety) Qty: 20 0RF insulin lispro [Humalog KwikPen Insulin] 100 unit/mL Insulin Pen 50 unit SUBCUT DAILY ondansetron 4 mg tablet,disintegrating 4 mg PO Q8H PRN (Reason: nausea and vomiting) Qty: 20 0RF ondansetron 4 mg tablet,disintegrating 4 mg PO Q8H PRN (Reason: nausea and vomiting) Qty: 10 0RF sucralfate [Carafate] 100 mg/mL suspension 10 ml PO BID Qty: 420 0RF lidocaine 5 % adhesive patch,medicated 1 patch topical DAILY PRN (Reason: pain) Qty: 15 0RF Rx Instructions: leave on most painful area for up to 12 hrs morphine 15 mg tablet 15 mg PO Q6H PRN (Reason: pain) 5 Days Qty: 10 0RF Rx Instructions: Partial Fill upon patient request. naproxen 500 mg tablet 500 mg PO BID PRN (Reason: pain) Qty: 14 0RF Rx Instructions: Take with food Stand Alone Forms: Against Medical Advice Interventions: ED Discharge Assessment Last Done: 06/27/25 19:09 Print Language: Portuguese
[2025-06-27 11:42] LABS: MANUAL DIFF FLAG NO
--- NOTE | 2025-06-27 11:44 | ECG_ITS ---
Test Reason : ASSESS QTC Blood Pressure : */* mmHG Vent. Rate : 69 BPM Atrial Rate : 69 BPM P-R Int : 112 ms QRS Dur : 74 ms QT Int : 410 ms P-R-T Axes : 65 60 66 degrees QTcB Int : 439 ms Normal sinus rhythm with sinus arrhythmia Normal ECG When compared with ECG of 18-Jul-2017 21:51, No significant change was found Referred By: Ingrid Linda Electronically Signed By: Balaji Barraza
[2025-06-27 11:46] LABS: Venous Blood Gas Refer to POC result
[2025-06-27 11:47] LABS: VBG HCO3 24 mmol/L (22-26); VBG O2 % Saturation 83.0 %
[2025-06-27 11:56] LABS: Anion Gap 17 (12-20); Blood Urea Nitrogen 11 mg/dL (9-16); Calcium 10.0 mg/dL (8.4-10.2); Carbon Dioxide 21 mmol/L (22-29); Chloride 108 mmol/L (96-108); Creatinine Clr Calc Pharmacy 168.7; Estimated Glomerular Filt Rate > 60; Hematocrit 44.1 % (42.0-52.0); Hemoglobin 16.4 g/dl (14.0-18.0); Imm Gran Abs Auto 0.12 X10*3/uL (0.00-0.03); Imm Gran Pct Auto 0.6 % (0.0-0.4); Lymphocytes Absolute Auto 0.9 X10*3/uL (1.2-4.9); Mean Corpuscular HGB Conc 37.2 g/dl (31.0-36.0); Mean Corpuscular Hemoglobin 35.3 pg (27.0-33.0); Mean Corpuscular Volume 94.8 fL (80.0-98.0); NRBC Abs Auto 0.000 X10*3/uL (0.0-0.012); NRBC Pct Auto 0.0 /100WBC (0.0-0.2); Platelet Count 423 X10*3/uL (160-400); Potassium 4.1 mmol/L (3.3-5.1); Red Blood Count 4.65 X10*6/uL (4.60-5.80); Sodium 142 mmol/L (135-145); White Blood Count 19.3 X10*3/uL (4.8-10.8)
[2025-06-27 12:15] VITALS: BP 116/77; PULSE 72; RESP 18; O2SAT 97
[2025-06-27 12:40] LABS: Lipase 6 U/L (8-78); Magnesium 1.8 mg/dL (1.6-2.6)
--- NOTE | 2025-06-27 13:11 | PC.NURSE ---
Pt resting comfortably, no vomiting at this time.
[2025-06-27 14:09] VITALS: BP 114/91; PULSE 80; RESP 14; TEMP 36.9; O2SAT 99
--- NOTE | 2025-06-27 14:23 | PC.NURSE ---
Po trial in progress.
--- NOTE | 2025-06-27 14:50 | MHC.EDTECH ---
pt found vomiting s/p PO trial, RN made aware
[2025-06-27] MEDS: Lactated Ringers 1,000 ML 999 ML IV (14:52)
--- OUTSIDE RECORDS SUMMARY | 2025-06-27 14:52 | XMS_ITS | Clinical Summary ---
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 risperiDONE (RISPERDAL) 1 MG tablet Take 1 tablet (1 mg total) by mouth 2 (two) times a day. 60 tablet 8 Active Additional Information Patient not taking.Reported on 10/25/2020 hydrOXYzine (ATARAX) 50 MG tablet Take 1 tablet (50 mg total) by mouth every 6 (six) hours as needed for anxiety (insomnia). 60 tablet 8 Active Additional Information Patient not taking.Reported on 10/25/2020 levothyroxine (SYNTHROID,LEVO THROID) 25 MCG tablet TAKE 1 TABLET BY MOUTH EVERY MORNING ON AN EMPTY STOMACH Active Active Problems Problem Noted Date Diagnosed Date Diabetes mellitus 06/25/2018 Assessment & Plan (06/26/2018 10:14 AM EDT): Treated for type 1 diabetes, diagnosed 6 years ago, on long-term insulin. Most recently managed with an insulin pump although he has used subcutaneous insulin injections with Lantus and Humalog when his pump broke and required servicing. Pump taken away at admission for safety. On 06/24 he was started on Lantus 10 units twice daily along with prandial and sliding scale Humalog. His sugars have remained greater than 300. 06/25 Adequate glucose control overnight with low 75 at 1 AM, 250s-320 in the evening. Comfortable without acute symptoms. -Lantus continued at 10 mg BID with sugars stable -Additional sliding scale available, mirroring pump dosing. -Continue to monitor every 2 hours while awake, okay to defer during the night when patient asleep MEDICINE TO SIGN OFF, PLEASE RECONSULT IF NEEDED Persistent mood (affective) disorder, unspecifie d 06/23/2018 Assessment & Plan (06/25/2018 11:22 AM EDT): Treatment per psychiatry recommendations Social History Tobacco Use Types Packs/Day Years Used Date Smoking Tobacco: Former Smokeless Tobacco: Current Comments:vape 3mg/day Alcohol Use Standard Drinks/Week Comments Yes 6 (1 standard drink = 0.6 oz pur e alcohol) few times a week Education Answer Date Recorded Are you interested in more education? Not on jw e 01/29/2023 Are you concerned about learning? Not on file 01/29/2023 No 01/29/2023 No 01/29/2023 Digital Access Answer Date Recorded No 03/01/2023 No 03/01/2023 No 03/01/2023 Reliable internet access at home? Not on file 03/01/2023 Device with a working camera? Not on file Intimate Partner Violence Answer Date R ecorded Are you denied basic needs s uch as food, clothing, or medical care? No 03/04/2024 In the past 12 months have y ou been in a relationship with a person who hurts, threatens, or tries to control you? No 03/04/2024 Are you denied basic needs s uch as food, clothing, or medical care? No 03/04/2024 In the past 12 months have y ou been in a relationship with a person who hurts, threatens, or tries to control you? No 03/04/2024 Sex and Gender Information Value Date Recorded Sex Assigned at Male 06/22/2018 5:39 PM EDT Legal Sex Male 9:12 PM EDT Gender Identity Male 06/22/2018 5:39 PM EDT Sexual Orientation Straight 06/22/2018 5: 39 PM EDT Last Filed Vital Signs Vital Sign Reading Time Taken Comments Blood Pressure 136/84 03/04/2024 2:14 PM EDT Pulse 80 03/04/2024 2:14 PM EDT Temperature 36.7 C (98 F) 03/04/2024 2:14 PM EDT Respiratory Rate 16 03/04/2024 2:14 PM EDT Oxygen Saturation 98% 03/04/2024 2:14 PM EDT Inhaled Oxygen Concentration - - Weight 73.9 kg (163 lb) 03/04/2024 12:23 PM EDT Height 170.2 cm (5' 7 ) 03/04/2024 12:23 PM EDT Body Mass Index 25.53 03/04/2024 12:23 PM EDT Plan of Treatment Health Maintenance Due Date Last Done Comments Adult Td,Tdap Booster 1986 BLOOD PRESSURE 1986 TSH LEVEL 1986 DEPRESSION SCREENING 1998 SMOKING Hx and SMOKELESS TOB ACCO SCREENING 1999 HEPATITIS C SCREENING 2004 HIV ONE-TIME SCREENING (18-6 5 YEARS) 2004 PNEUMOCOCCAL VACCINES (0-49 years) (1 of 2 - PCV) 2005 DIABETIC EYE EXAM 06/23/2018 URINE MICROALBUMIN/CREATININ E RATIO 06/23/2018 HEMOGLOBIN A1C 09/23/2018 06/24/2018 LIPID PANEL 06/24/2019 06/24/2018 INFLUENZA VACCINE (#1) 2025 10/28/2016 COVID-19 VACCINE (1 - 2023-2 5 season) 2025 HEPATITIS A VACCINES Aged Out No long er eligible based on patient's age to complete this topic HIB VACCINES Aged Out No longer eligi ble based on patient's age to complete this topic MENINGOCOCCAL VACCINES (ACWY) Aged Out No longer eligible based on patient's age to complete this topic MENINGOCOCCAL VACCINES (B) Aged Out N o longer eligible based on patient's age to complete this topic Medical Devices Not on file Procedures Procedure Name Priority Date/Time Associated Diagnosis Comments HEMOGLOBIN A1C Routine 06/24/2018 6:36 AM EDT LIPID PANEL Routine 06/24/2018 6:36 AM EDT from Last 3 Months or Most Recently Relevant to Health Maintenance Results * (ABNORMAL) Hemoglobin A1c (06/24/2018 6:36 AM EDT) HEMOGLOBIN A1C 9.4(H) 4.3 - 5.8 % [facility] Blood 06/24/2018 6:36 AM EDT 06/24/2018 6:54 AM EDT us Celestine Noel MD LAB BLOOD ORDERABLES Final Resul t [address] [id number] * (ABNORMAL) Lipid panel (06/24/2018 6:36 AM EDT) Pathologist [facility] HDL 53 mg/dL [facility] Comment: Interpretation: Risk Level Males Decreased >45 mg/dL Average 40-45 mg/dL Increased <40 mg/dL CHOLESTEROL 154 0 - 240 mg/dL [facility] TRIGLYCERIDES 150 30 - 160 mg/dL [facility] LDL 71 50 - 129 mg/dL [facility] Comment: LDL levels in terms of risk for coronary heart disease: <100 mg/dL: Optimal 100-129 mg/dL: Near or above optimal 130-159 mg/dL: Borderline high 160-189 mg/dL: High >190 mg/dL: Very High CARDIAC RISK RATIO 2.9(L) 3.4 - 5.0 [facility] Blood 06/24/2018 6:36 AM EDT 06/24/2018 6:54 AM EDT us Celestine Noel MD LAB BLOOD ORDERABLES Final Resul t [address] [id number] from Last 3 Months or Most Recently Relevant to Health Maintenance Insurance [facility] Advance Directives For more information, please contact: [phone] (9AM - 5PM [facility] [facility], Wednesday-Wednesday) * Full Code (Presumed) (Latest Code Status on File) Date Activated Date Inactivated Comments 06/23/2018 12:43 PM 06/28/2018 1:17 PM Care Teams 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 It is not the complete legal health record.[facility]
[2025-06-27 16:01] VITALS: BP 123/82; PULSE 70; RESP 20; TEMP 37.2; O2SAT 100
--- NOTE | 2025-06-27 16:01 | MHC.EDTECH ---
pt newly diaphoretic, pale lookig, warm to touch, oral temp 99.0. pt refusing rectal temp at this time, RN aware
--- NOTE | 2025-06-27 16:16 | PC.NURSE ---
Po challenge attempted again
[2025-06-27 16:33] LABS: Glucose, Whole Blood 149 mg/dL (60-115)
[2025-06-27 16:58] LABS: Alanine Aminotransferase 12 U/L (0-40); Albumin Level 4.9 g/dL (3.5-5.0); Alkaline Phosphatase 74 U/L (39-117); Aspartate Amino Transferase 32 U/L (5-37); Total Protein 7.9 g/dL (6.5-8.0)
[2025-06-27 18:09] VITALS: BP 145/82; PULSE 62; RESP 19; TEMP 37; O2SAT 97
[2025-06-27 19:09] VITALS: BP 145/82; PULSE 62; RESP 19; TEMP 37; O2SAT 97
== END 2025-06-27 19:40 | disposition left against medical advice (07) ==
PROVIDERS: Physician Assistant Medical; Emergency Provider Emergency Medicine
DX: G43.A0 Cyclical vomiting, in migraine, not intractable (principal); I49.8 Other specified cardiac arrhythmias; E10.9 Type 1 diabetes mellitus without complications; Z79.4 Long term (current) use of insulin; Z79.899 Other long term (current) drug therapy
CPT/HCPCS: 36415; 80048; 80076; 82010; 82803; 82947; 83690; 83735; 85025; 86140; 93005; 96361; 96374; 96375; 96376; 99285; J1200; J1790; J2765; J7120

== ENCOUNTER → 2025-06-27 11:44 | Outpatient (BNV) | payer OTHER, SELFPAY | PROVIDERS: Emergency Provider Emergency Medicine; Visit Provider Internal Medicine Cardiovascular Disease | DX: Z13.6 Encounter for screening for cardiovascular disorders (principal) | CPT/HCPCS: 93010 ==